=== PATIENT | male | born 1955 | race Caucasian/White ===

== ENCOUNTER → 2020-03-29 08:00 | Outpatient (CLI) | payer MEDICARE, OTHER, SELFPAY ==
--- NOTE | 2020-03-29 08:07 | DI.ECHO.S_ITS ---
Version: 1 Study ID: [id number] [place] [address] Name: KEVIN SEGOVIA Study Date: 03/29/2020, 8: 32 AM : 1955 BP: 133 / 82 mmHg Gender: Male Height: 70 in Age: 64 Years Weight: 190 lb BSA: 2.04 mA? Ordering: ELIOT SANTIZO Referring: ELIOT SANTIZO Clinician: Jennifer Anderson Reason For Study: EDEMA History: Summary Statements Normal sinus rhythm. Normal LV size, wall thickness, wall motion and LV systolic function. EF is 50-55%. Mild LA enlargement; borderline RV enlargement; otherwise normal chamber sizes. No significant valvular abnormalities. No prior study available for comparison Procedure: A two-dimensional transthoracic echocardiogram with color flow and Doppler was performed. The study quality was technically adequate. There is no prior echocardiogram noted for this patient. The patient was in sinus rhythm with heart rates between 55-66 bpm during the exam. Left Ventricle: Diastolic parameters suggest probable normal left ventricular diastolic function and normal filling pressures. The ejection fraction is estimated to be 50-55%. The left ventricle is normal in size and wall thickness. Right Ventricle: The right ventricular systolic function is normal. The right ventricle is borderline dilated. Atria: There is no Doppler evidence for an interatrial shunt. The left atrium is mildly dilated. Right atrial size is normal. Mitral Valve: There is trace mitral regurgitation. The mitral valve leaflets appear mildly thickened, but open well. Aortic Valve: No aortic regurgitation is present. There is no aortic valve stenosis. The aortic valve is trileaflet. The aortic valve opens well. Tricuspid Valve: There is mild tricuspid regurgitation. The right ventricular systolic pressure is estimated to be at least 27 mmHg based on an estimated right atrial pressure of 3 mm Hg. The tricuspid valve is normal in structure and function. Pulmonic Valve: There is no pulmonic valvular regurgitation. The pulmonic valve is not well visualized. Great Vessels: The dimensions of the ascending aorta are normal. The aortic root is normal size. The IVC is of normal diameter and collapses greater than 50% with a sniff. This suggests a low right atrial pressure of 3 mm Hg. Pericardium/ Pleura: There is no pericardial effusion. There is no pleural effusion. 2D and M-Mode Measurements and Calculations LVIDd: 5.1 cm AoV Openin.97 cm LVIDs: 3.7 cm LVOT diam: 2.19 cm IVSd: 1.02 cm Ao root diam: 3.5 cm LVPWd: 0.81 cm LV singleton. diameter/BSA (cm/m^2): 2.5 LV sys. diameter/BSA (cm/m^2): 1.79 EPSS: 0.42 cm RVD1 (basal): 4.3 cm IVC diam: 1.49 cm TAPSE: 2.7 cm LA A4 area: 20.0 ambulance paramedic? RA area: 20.4 ambulance paramedic? LA A2 area: 23.1 ambulance paramedic? RA long axis: 5.3 cm LA length (vol): 5.0 cm RA vol: 67.5 ml LA vol: 77.6 ml RA : 33.0 ml/mA? LA vol index: 38.0 ml/mA? Doppler Measurements and Calculations Ao V2 max: 121.3 cm/sec LVOT Max Mike: 102.8 cm/sec Ao V2 mean: 74.2 cm/sec LV V1 max P.2 mmHg Ao V2 VTI: 22.3 cm LV V1 VTI: 20.5 cm Ao max P.9 mmHg Ao mean P.6 mmHg LANDON(I,D): 3.5 ambulance paramedic? LANDON(V,D): 3.2 ambulance paramedic? LANDON indexed to BSA (cm^2/m^2): 1.69 sev ratio: 0.92 MV E max mike: 62.3 cm/sec MV dec time: 0.21 sec MV A max mike: 76.7 cm/sec MV E/A: 0.81 Med Peak E' Mike: 6.8 cm/sec Lat Peak E' Mike: 9.3 cm/sec E/e' average: 8.0 TR max mike: 246.2 cm/sec PA V2 max: 69.8 cm/sec TR max P.2 mmHg PA mean P.98 mmHg Cyndy Kenyon M.D. Electronically signed by: Cyndy Kenyon M.D. 03/29/2020, 11: 07 PM
== END ==
PROVIDERS: PCP Internal Medicine; Referring Provider Internal Medicine; Visit Provider Internal Medicine
DX: I07.1 Rheumatic tricuspid insufficiency (principal); R60.9 Edema, unspecified
CPT/HCPCS: 93306

== ENCOUNTER 2020-05-13 21:44 | Observation (INO) | payer MEDICARE, OTHER, SELFPAY ==
[2020-05-13 21:53] VITALS: BP 122/74; PULSE 65; RESP 22; TEMP 36.5; O2SAT 100
--- NOTE | 2020-05-13 21:59 | DI.RAD.S_ITS ---
PROCEDURE: XR ACUTE ABDOMEN SERIES INDICATIONS: Abdominal pain TECHNIQUE: One view chest and two views of the abdomen were acquired. COMPARISON: [facility], CT, CT ABDOMEN PELVIS W CON, 05/13/2020, 22:51. FINDINGS: Surgical changes and devices: None. Chest: Lungs are clear. Heart size is normal. No pleural effusions. No pneumoperitoneum. Abdomen: There is a paucity of intraluminal gas within the small bowel. Multiple scattered small bowel air-fluid levels are demonstrated. No suspicious calcifications. Bones: No suspicious bony lesions. IMPRESSION: 1. Nonspecific bowel gas pattern with multiple scattered air-fluid levels. Findings may represent a small bowel obstruction or ileus. Recommend correlation with subsequent CT. Dictated by: Jorden Lynch M.D. on 05/14/2020 at 8:29 Approved by: Jorden Lynch M.D. on 05/14/2020 at 8:30
--- NOTE | 2020-05-13 22:24 | DI.CT.S_ITS ---
PROCEDURE: CT ABDOMEN PELVIS W CON INDICATIONS: severe abdominal pain, nausea, and vomiting TECHNIQUE: After the administration of intravenous contrast, 5 mm thick sections acquired from the diaphragm to the symphysis. 5 mm coronal and sagittal reformats were acquired. For radiation dose reduction, the following was used: automated exposure control, adjustment of mA and/or kV according to patient size. COMPARISON: [facility], CR, XR ACUTE ABDOMEN SERIES, 05/13/2020, 21:59. FINDINGS: Image quality: Excellent. ABDOMEN: Lung bases: There is mild left basilar atelectasis. Heart size is normal. Solid organs: Evaluation of the liver demonstrates no focal hepatic lesions. The gallbladder appears within normal limits without calcified gallstones. Biliary system is non-dilated. Pancreas enhances normally. No peripancreatic fat stranding or fluid collections. No pancreatic duct dilatation. The spleen is normal in size. No adrenal nodules. Kidneys demonstrate no hydronephrosis. There is an exophytic oval hypodense lesion along the posterior left kidney measuring up to 1.8 x 1.2 cm with attenuation values higher than expected for a simple cyst. There are small foci of wall thickening. Peritoneum and bowel: There is segmental distention of multiple small bowel loops primarily involving the jejunum in the left lower quadrant. These measure up to 3.1 cm in diameter with scattered air-fluid levels. There is a relative transition point in the right paracentral region of the mid to lower abdomen. More distal loops of small bowel are normal in caliber. The colon also demonstrates normal caliber. The findings are compatible with a partial small bowel obstruction. There is colonic diverticulosis without acute diverticulitis. Mild segmental wall thickening is demonstrated in the sigmoid colon suggestive of a mild colitis. The appendix is normal in appearance. No free fluid or air. Nodes and vessels: No retroperitoneal or mesenteric adenopathy by size criteria. Aorta and inferior vena cava are normal in size. Miscellaneous: No ventral hernias. PELVIS: Genitourinary: Bladder wall thickness is normal. Miscellaneous: No inguinal hernias or adenopathy. Bones: No suspicious bony lesions. No vertebral body compression fractures. IMPRESSION: 1. Findings compatible with a partial small bowel obstruction with a relative transition point in the right mid to lower abdomen anteriorly. 2. Colonic diverticulosis without acute diverticulitis. Concordant with preliminary interpretation. Dictated by: Jorden Lynch M.D. on 05/14/2020 at 8:04 Approved by: Jorden Lynch M.D. on 05/14/2020 at 8:10
--- NOTE | 2020-05-13 22:24 | ED_ITS ---
HPI - Abdominal Pain General Chief Complaint: Abdominal Pain Stated Complaint: ABD pain Time Seen by Provider: 05/13/20 21:53 Source: patient and EMS Mode of arrival: EMS Limitations: no limitations History of Present Illness HPI narrative: 64-year-old male nonsmoker presents with a chief complaint of severe abdominal pain for the past few hours, he states it started suddenly, and is largely persistent but seems to have waves of intensity without provocation or palliation. He has had nausea and vomiting. Last bowel movement was 45 minutes ago. He has no trouble passing gas. He denies any abdominal surgeries before. He has had no fever chills and denies any new medications or dietary change. MD complaint: abdominal pain Onset (ago): hour(s) Pain Consistency: constant Location: diffuse Severity: severe Severity scale (1-10): 10 Quality: cramping and stabbing Radiation: none Relieving factors: nothing Exacerbating factors: nothing Associated symptoms: nausea and vomiting Related Data Home Medications Medication Instructions Recorded Confirmed aspirin PO DAILY 05/13/20 atorvastatin PO QPM 05/13/20 lisinopril PO DAILY 05/13/20 metformin mg PO DAILY 05/13/20 nifedipine PO DAILY 05/13/20 tamsulosin mg PO DAILY 05/13/20 Review of Systems Constitutional Constitutional: Denies chills, Denies fatigue, Denies fever(s), Denies frequent falls, Denies lethargy and Denies weakness Eyes Eyes: Denies change in vision, Denies eye discharge, Denies irritation and Denies loss of vision ENT Ears, Nose, Mouth, and Throat: Denies change in voice, Denies dizziness, Denies neck pain, Denies sore throat and Denies throat swelling Cardiovascular Cardiovascular: Denies chest pain, Denies irregular heart rhythm, Denies lightheadedness, Denies palpitations, Denies dyspnea, Denies dyspnea on exertion and Denies orthopnea Respiratory Respiratory: Denies cough, Denies dyspnea, Denies dyspnea on exertion and Denies wheezing Gastrointestinal Gastrointestinal: Reports abdominal pain, Denies change in bowel habits, Denies diarrhea, Reports nausea and Reports vomiting Musculoskeletal Musculoskeletal: Denies neck pain and Denies numbness Integumentary/Breasts Skin/Breast: Denies pruritus, Denies erythema, Denies rash and Denies wounds Neurologic Neurologic: Denies behavioral changes, Denies confusion, Denies dizziness, Denies frequent falls, Denies loss of vision, Denies numbness and Denies weakness Psychiatric Psychiatric: Denies anxiety, Denies behavioral changes, Denies confusion, Denies depression, Denies homicidal ideation and Denies suicidal ideation Endocrine Endocrine: Denies fatigue, Denies flushing and Denies palpitations Hematologic/Lymphatic Hematologic/Lymphatic: Denies easy bruising Allergic/Immunologic Allergic/Immunologic: Denies urticaria, Denies throat swelling and Denies wheezing Patient History alcohol intake frequency: 0-2 drinks per day Substance Use Type: does not use Exam Narrative Exam Narrative: GENERAL: [64] year old patient appears stated age. Well- nourished, well-developed patient, in obvious distress, rubbing his abdomen HEAD: Atraumatic. Normocephalic. EYES: Pupils equal round and reactive. Extraocular motions intact. No scleral icterus. No injection or drainage. ENT: Nose without bleeding, purulent drainage. Throat without erythema, tonsillar hypertrophy or exudate. Airway patent. NECK: Trachea midline. Non tender CARDIOVASCULAR: Regular rate and rhythm without murmurs, gallops, or rubs. RESPIRATORY: Clear to auscultation. Breath sounds equal bilaterally. No wheezes, rales, or rhonchi. GASTROINTESTINAL: Moderate distension though soft, decreased bowel sounds in all 4 quadrants, very tender to palpate in the mid to upper central abdomen EXTREMITIES: No edema or joint tenderness. BACK: Nontender without deformity or crepitance. No flank tenderness. NEURO: AOx3. SKIN: No rash or erythema of visible areas Initial Vital Signs Initial Vital Signs: Vital Signs Temperature 97.7 F 05/13/20 21:53 Pulse Rate 65 05/13/20 21:53 Respiratory Rate 22 05/13/20 21:53 Blood Pressure 122/74 05/13/20 21:53 Pulse Oximetry 100 05/13/20 21:53 Course Orders Ordered: ED Orders 05/13/20 21:59 XR acute abdomen series Stat 05/13/20 22:24 CT abdomen pelvis w con Stat 05/13/20 22:30 Complete Blood Count AUTO DIFF Stat Comprehensive Metabolic Panel Stat 05/13/20 23:50 COVID19 Stat Lactated Ringer's (Lactated Ringers) 1,000 mls @ 150 mls/hr IV CONT CASE Last Admin: 05/14/20 00:34 Dose: 150 mls/hr Documented by: KELY Discontinued Medications Lactated Ringer's (Lactated Ringers) 1,000 mls @ 1,000 mls/hr IV BOLUS ONE Stop: 05/13/20 22:57 Last Infusion: 05/14/20 00:34 Dose: 0 mls/hr Documented by: Admin: 05/13/20 22:35 Dose: 1,000 mls/hr Documented by: KELY Consultations Consultation #1: call to Dr. Andres (Gen Surgery), no surgical indications, requests admission to medicine Consultation #2: call to Hospitalist. Happy to accept Vital Signs Vital signs: Vital Signs - 8 hr 05/13/20 21:53 Temperature 97.7 F Pulse Rate 65 Respiratory Rate 22 Blood Pressure 122/74 Pulse Oximetry 100 MDM - Abdominal Pain Lab Data Result diagrams: 05/13/20 22:30 05/13/20 22:30 Labs: Lab Results 05/13/20 05/13/20 05/13/20 Range/Units 22:30 22:30 23:50 WBC 10.0 (4.5-11.0) X10^3/uL RBC 4.69 (4.5-5.9) X10^6/uL Hgb 13.8 (13.5-17.5) g/dL Hct 42.2 (41-53) % MCV 89.9 (80-100) fL MCH 29.4 (26-34) PG MCHC 32.7 (30-36) % RDW 14.0 (11.6-14.8) % Plt Count 237 (150-400) X10^3/uL Neut % (Auto) 77.1 H (50-75) % Lymph % (Auto) 14.9 L (25-40) % [place] % (Auto) 6.6 (3-14) % Eos % (Auto) 0.9 L (2-4) % Baso % (Auto) 0.5 (0-2) % Neut # (Auto) 7700 H (4095-3040) /uL Lymph # (Auto) 1500 (1755-4160) /uL [place] # (Auto) 700 (0-900) /uL Eos # (Auto) 100 (0-450) /uL Baso # (Auto) 0 (0-100) /uL Sodium 137 (137-145) mmol/L Potassium 4.4 (3.4-5.1) mmol/L Chloride 102 (98-107) mmol/L Carbon Dioxide 32 (22-32) mmol/L BUN 27 H (9-20) mg/dL Creatinine 1.35 H (0.66-1.25) mg/dL Estimated GFR 52.9 L (>60) mL/min BUN/Creatinine Ratio 20.0 (6-22) Glucose 178 H (80-110) mg/dL Calcium 9.2 (8.4-10.2) mg/dL Total Bilirubin 0.4 (0.2-1.3) mg/dL AST 22 (17-59) IU/L ALT 16 (<50) IU/L Alkaline Phosphatase 105 (38-126) U/L Total Protein 7.7 (6.3-8.2) g/dL Albumin 4.6 (3.5-5.0) g/dL Globulin 3.1 (1.7-4.1) g/dL Albumin/Globulin Ratio 1.5 (1.0-2.8) SARS-CoV-2 (PCR) Negative (Negative) Imaging Data Abdominal x-ray: Radiologist's Impression: B/L consolidation consistent with pneumonia CT scan - abdomen/pelvis: Radiologist's Impression: moderate partial bowel obstruction involving the proximal to mid jejunum MDM Narrative Medical decision making narrative: patient with sudden severe colicky abdominal pain, N/V very concerning for SBO. AAS shows no obstruction but suggests B/L PNA. Patient has no SOB, cough, fever, or abnormal lung exam. At admission patient not actively vomiting, pain tolerable, and no elevated WBCs, also he has had multiple sinus surgeries and very much does not want an NG at this time Discharge Plan Departure Patient Disposition: Admitted As Inpatient Clinical Impression: Small bowel obstruction
[2020-05-13] MEDS: LACTATED RINGERS 1,000 ML 1000 ML IV (22:35)
[2020-05-13 22:40] LABS: Add Manual Diff / Slide Review NO; Basophils Absolute Auto 0 /uL (0-100); Basophils Percent Auto 0.5 % (0-2); Eosinophils Absolute Auto 100 /uL (0-450); Eosinophils Percent Auto 0.9 % (2-4); Hematocrit 42.2 % (41-53); Hemoglobin 13.8 g/dL (13.5-17.5); Lymphocytes Absolute Auto 1500 /uL (1100-4500); Lymphocytes Percent Auto 14.9 % (25-40); Mean Corpuscular HGB Conc 32.7 % (30-36); Mean Corpuscular Hemoglobin 29.4 PG (26-34); Mean Corpuscular Volume 89.9 fL (80-100); Monocytes Absolute Auto 700 /uL (0-900); Monocytes Percent Auto 6.6 % (3-14); Neutrophils Absolute Auto 7700 /uL (1500-7000); Neutrophils Percent Auto 77.1 % (50-75); Platelet Count 237 X10^3/uL (150-400); Red Blood Cell Count 4.69 X10^6/uL (4.5-5.9)
[2020-05-13 22:50] LABS: Alanine Aminotransferase 16 IU/L (<50); Albumin 4.6 g/dL (3.5-5.0); Albumin Globulin Ratio 1.5 (1.0-2.8); Alkaline Phosphatase 105 U/L (38-126); Aspartate Aminotransferase 22 IU/L (17-59); Bilirubin Total 0.4 mg/dL (0.2-1.3); Blood Urea Nitrogen 27 mg/dL (9-20); Calcium 9.2 mg/dL (8.4-10.2); Carbon Dioxide 32 mmol/L (22-32); Chloride 102 mmol/L (98-107); Estimated Glomerular Filt Rate 52.9 mL/min (>60); Globulin 3.1 g/dL (1.7-4.1); Glucose 178 mg/dL (80-110); HEMOLYSIS 47 (0-50); Potassium 4.4 mmol/L (3.4-5.1); Sodium 137 mmol/L (137-145); Total Protein 7.7 g/dL (6.3-8.2)
[2020-05-14 00:10] LABS: COVID19 -Nasal RAPID Negative (Negative)
[2020-05-14] MEDS: LACTATED RINGERS 1,000 ML 150 ML IV (00:34)
[2020-05-14 01:51] VITALS: BP 138/80; PULSE 62; RESP 15; TEMP 36.4; O2SAT 98
--- NOTE | 2020-05-14 01:51 | PM.HP.1 ---
History of Present Illness History of Present Illness Date Patient Seen: 05/14/20 Time Patient Seen: 01:15 Chief complaint: ABD pain Narrative: Tho Virgen is a 64 y.o. male with diabetes type 2, hypertension and hyperlipidemia was in his usual state of health when he developed abdominal pain and bloating after eating dinner. He had a bowel movement and thought that would relieve his pain. His pain persisted, became nauseous, threw up at home, then in the ambulance. After he throw up the first time, his called EMS. States the vomit was a joseph brown color and stated looked like what he had eaten for dinner. He denies headache or difficulty swallowing, has had left sinus surgery X 2, denies shortness of breath, chest pain, gas, dysurea, diarrhea or constipation. He requests NO narcotic medications as he does not want to mask his pain, unless it is given to him on the way to the OR. He also declines a nasogastric tube due to the issues of drainage from his left sinues. He states his last A1c was in the low 7s and has not heard about a result from 2 months ago. Abdominal and pelvis CT indicate a moderate partial small-bowel obstruction involving the proximal and to mid jejunum. Patient was initiated on and LR bolus and arrived to the floor with LR running at 150 mL. Patient is afebrile, blood pressure 117/61, heart rate 66, respiratory rate 20, oxygen saturation of 98% on room air, he weighs 95 kg with a BMI of 30.1. His CBC is largely within normal limits, he does have a creatinine elevation of 1.35 and this is unknown whether this is his baseline, BUN is 27, GFR is 52.9, glucose 178, liver enzymes within normal limits and COVID-19 PCR is negative. Patient History Medical History (Updated 05/14/20 @ 02:12 by ANTHONY Duval) Diabetes type 2, controlled Essential hypertension Hyperlipidemia Surgical History (Updated 05/14/20 @ 02:12 by ANTHONY Duval) History of fusion of cervical spine History of sinus surgery Family & Social History Family History (Updated 05/14/20 @ 02:16 by ANTHONY Duval) Father Sepsis Myocardial infarction Mother of unknown cause Safety & Behavioral: Feels Safe in Current Yes Environment Been Physically Hurt or No Threatened By a Person Tobacco & Substance use: alcohol intake frequency 0-2 drinks per day Substance Use Type does not use Meds Home Medications and Allergies Home Medications Medication Instructions Recorded Confirmed Type aspirin PO DAILY 05/13/20 History atorvastatin PO QPM 05/13/20 History lisinopril PO DAILY 05/13/20 History metformin mg PO DAILY 05/13/20 History nifedipine PO DAILY 05/13/20 History tamsulosin mg PO DAILY 05/13/20 History Allergies Allergy/AdvReac Type Severity Reaction Status Date / Time No Known Drug Allergies Allergy Verified 05/14/20 01:59 Review of Systems Review of Systems ROS: Yes All systems reviewed with the patient and are negative except as otherwise documented Exam Vital Signs (past 8 hours): - 05/13/20 21:53 Temperature 97.7 F Pulse Rate 65 Respiratory Rate 22 Blood Pressure 122/74 Pulse Oximetry 100 Oxygen Delivery Method Room Air Narrative Exam Narrative: Gen: Alert, oriented, well-developed 64 y.o. male, very pleasant HEENT: normocephalic, atraumatic, conjunctiva clear, sclera non-icteric, oral mucosa pink and moist Neck: supple, full ROM, no JVD, trachea is midline Resp: Lungs sounds course, non-labored breathing CV: RRR, no murmur or rubs Abd: soft, mildly distended, hyperactive BTs, no fluid wave Skin: no lesions or rashes, dry and intact Neuro: Alert and oriented X 4 w/no focal deficits. Speech clear and coherent. Extremities: moves all 4 extremities, is ambulatory, negative James?s sign Psyche: normal mood and affect. Objective Labs Result Diagrams: 05/13/20 22:30 05/13/20 22:30 Labs: Laboratory Results - last 24 hr 05/13/20 05/13/20 05/13/20 22:30 22:30 23:50 WBC 10.0 RBC 4.69 Hgb 13.8 Hct 42.2 MCV 89.9 MCH 29.4 MCHC 32.7 RDW 14.0 Plt Count 237 Neut % (Auto) 77.1 H Lymph % (Auto) 14.9 L [place] % (Auto) 6.6 Eos % (Auto) 0.9 L Baso % (Auto) 0.5 Neut # (Auto) 7700 H Lymph # (Auto) 1500 [place] # (Auto) 700 Eos # (Auto) 100 Baso # (Auto) 0 Sodium 137 Potassium 4.4 Chloride 102 Carbon Dioxide 32 BUN 27 H Creatinine 1.35 H Estimated GFR 52.9 L BUN/Creatinine Ratio 20.0 Glucose 178 H Calcium 9.2 Total Bilirubin 0.4 AST 22 ALT 16 Alkaline Phosphatase 105 Total Protein 7.7 Albumin 4.6 Globulin 3.1 Albumin/Globulin Ratio 1.5 SARS-CoV-2 (PCR) Negative Assessment & Plan Assessment & Plan narrative: Tho Virgen is a 64 y.o. male with a partial small bowel obstruction who will be admitted initially for medical management. Partial small bowel obstruction, acute, present on admission -NPO except meds -Encourage ambulation -PO tylenol for mild pain, patient declines anything stronger -Dr. Andres is aware and will see the patient if requested Diabetes type 2, likely well controlled -Holding oral antidiabetics -Blood glucose and low dose correctional insulin q 6 hours Essential hypertension, well controlled -continue home dose of nifedipine, holding lisinopril due to current renal function -Patient is normotensive at this time, so will hold meds until the am Hyperlipidemia, chronic and stable -Continue home dose of atorvastatin 40 mg po at bed time BPH, chronic -Continue home dose of 0.4 mg at 0600 VTE prophylaxis: Wells risk score: 0 Bilateral SCDs Consults: Dr. Andres, General Surgery consult and involvement is appreciated. Patient is admitted under inpatient status with expected length of stay greater than 2 midnights due to severity of presenting symptoms, risk of adverse event, and complexity of treatment plan. FEN: IV NS at 100 ml/hour, NPO, BMP and magnesium in the am. Dispo: probable d/c to home if he has another BM Code Status: Full code as discussed with patient COVID-19 COVID-19 status: Negative Result date/Date tested (Pos, Neg/Pending): 05/14/20 Scores Wells' Criteria for PE Clinical signs and symptoms of DVT: No PE is #1 Dx or equally likely: No Heart rate > 100: No Immobilization at least 3 days or surg in previous 4 weeks: No History of PE or DVT: No Hemoptysis: No Malignancy w/Treatment within 6 months or palliative: No Wells' PE Score total: 0
[2020-05-14] MEDS: SODIUM CHLORIDE 0.9% 1,000 ML 100 ML IV (02:00)
[2020-05-14 02:02] VITALS: BP 117/61; PULSE 66; RESP 20; O2SAT 98
[2020-05-14] MEDS: INSULIN ASPART 100 UNIT/ML INSULN PEN SUBCUT (02:37)
--- NOTE | 2020-05-14 03:21 | PC.NURSE ---
0151 Admitted from ER for SBO, abdominal pain. Denies any pain & nausea upon admission. NPO for now CBG 196 1 unitt of Insulin sliding scale admin. NS started @ 100 cc/hr, oriented to his room. Denies any recent fall for the past 3 months, fall precaution not implemented. Call light within reach, will cont. POC & monitor.
[2020-05-14 06:02] LABS: Add Manual Diff / Slide Review NO; Basophils Absolute Auto 0 /uL (0-100); Basophils Percent Auto 0.5 % (0-2); Eosinophils Absolute Auto 0 /uL (0-450); Eosinophils Percent Auto 0.4 % (2-4); Hematocrit 36.6 % (41-53); Hemoglobin 11.9 g/dL (13.5-17.5); Lymphocytes Absolute Auto 1500 /uL (1100-4500); Lymphocytes Percent Auto 19.1 % (25-40); Mean Corpuscular HGB Conc 32.6 % (30-36); Mean Corpuscular Hemoglobin 29.3 PG (26-34); Mean Corpuscular Volume 89.8 fL (80-100); Monocytes Absolute Auto 800 /uL (0-900); Neutrophils Absolute Auto 5700 /uL (1500-7000); Platelet Count 220 X10^3/uL (150-400); Red Blood Cell Count 4.08 X10^6/uL (4.5-5.9); Red Cell Distribution Width 13.8 % (11.6-14.8); White Blood Cell Count 8.1 X10^3/uL (4.5-11.0)
[2020-05-14 06:33] LABS: Magnesium 2.3 mg/dL (1.6-2.3)
[2020-05-14 06:34] LABS: BUN Creatinine Ratio 19.7 (6-22); Blood Urea Nitrogen 23 mg/dL (9-20); Calcium 8.4 mg/dL (8.4-10.2); Carbon Dioxide 29 mmol/L (22-32); Chloride 107 mmol/L (98-107); Estimated Glomerular Filt Rate > 60.0 mL/min (>60); Glucose 162 mg/dL (80-110); HEMOLYSIS 21 (0-50); Sodium 138 mmol/L (137-145)
[2020-05-14 06:43] LABS: Hemoglobin A1C% w Est Avg Glu 7.9 % (4.0-6.0)
[2020-05-14 07:00] VITALS: O2SAT 98
--- NOTE | 2020-05-14 07:01 | DI.RAD.S_ITS ---
PROCEDURE: FL SMALL BOWEL FOLLOW THROUGH INDICATIONS: small bowel obstruction. Perform with gastrografin COMPARISON: None. FINDINGS: KUB: Preprocedural reserves clerk film demonstrates a normal bowel gas pattern. No suspicious abdominal calcifications. Visualized solid organ contours appear normal. No suspicious bony abnormalities. Small bowel: There is normal transit time of barium through the small bowel. Small bowel loops are of normal caliber throughout. Mucosal folds are smooth and of normal thickness. No strictures, intraluminal masses, or extrinsic mass effects are noted. The terminal ileum is identified, and is normal in morphology. IMPRESSION: Normal small bowel follow-through, no delay in transit of oral contrast through the small-bowel and into the colon. Dictated by: Wilfredo Cunningham M.D. on 05/14/2020 at 10:52 Approved by: Wilfredo Cunningham M.D. on 05/14/2020 at 10:52
--- NOTE | 2020-05-14 08:31 | PC.NURSE ---
Addendum entered by Alison Kennedy R.N. 05/14/20 10:49: patient has had total of 7 explosive diarrhea episodes. Original Note: PATIENT HAS HAD [address] SANTILLAN NOTIFIED. HOLD SUPPOSITORY AND FLEETS, CONTINUE WITH SM BOWEL FOLLOW THRU.
--- NOTE | 2020-05-14 11:59 | P.CONS_ITS ---
History of Present Illness Consult details Date Patient Seen: 05/14/20 Time Patient Seen: 11:59 Chief complaint: ABD pain Narrative: 64-year-old man seen in consultation for a small-bowel obstruction. Several days of abdominal bloating nausea vomiting and then presents to the emergency room last night. On admission he underwent a CT scan which demonstrates a partial small bowel obstruction with some dilated loops of small bowel and a possible transition point in the mid jejunum. No history of prior abdominal surgery or diverticular disease. Admission white blood cell count 8 reamers his labs were unremarkable he was afebrile vital signs within normal [place] its. Meds Home Medications and Allergies Home Medications Medication Instructions Recorded Confirmed Type aspirin [Adult Low Dose Aspirin] 81 mg PO DAILY 05/13/20 05/14/20 History atorvastatin [Lipitor] 40 mg PO QPM 05/13/20 05/14/20 History lisinopril 20 mg PO DAILY 05/13/20 05/14/20 History metformin mg PO DAILY 05/13/20 History nifedipine PO DAILY 05/13/20 History tamsulosin [Flomax] 0.4 mg PO DAILY 05/13/20 05/14/20 History Allergies Allergy/AdvReac Type Severity Reaction Status Date / Time No Known Drug Allergies Allergy Verified 05/14/20 01:59 Review of Systems Review of Systems Narrative: A 10 point review of systems is negative except as noted in the HPI Exam Vital Signs (past 8 hours): - 05/14/20 07:00 Pulse Oximetry 98 Oxygen Delivery Method Room Air Oxygen Flow Rate 0 Narrative Exam Narrative: General-no acute distress, well nourished adult male HEENT-moist mucous membranes, no scleral icterus Neck-supple, no lymphadenopathy Chest- non labored respirations, clear to auscultation bilaterally Cardiac-regular rate no peripheral edema Abdomen-mildly distended no peritonitis Extremities-warm, well perfused Neurological-alert and oriented, no focal deficits Objective Labs Result Diagrams: 05/14/20 05:41 05/14/20 05:41 Labs: Laboratory Results - last 24 hr 05/13/20 05/13/20 05/13/20 22:30 22:30 23:50 WBC 10.0 RBC 4.69 Hgb 13.8 Hct 42.2 MCV 89.9 MCH 29.4 MCHC 32.7 RDW 14.0 Plt Count 237 Neut % (Auto) 77.1 H Lymph % (Auto) 14.9 L [place] % (Auto) 6.6 Eos % (Auto) 0.9 L Baso % (Auto) 0.5 Neut # (Auto) 7700 H Lymph # (Auto) 1500 [place] # (Auto) 700 Eos # (Auto) 100 Baso # (Auto) 0 Sodium 137 Potassium 4.4 Chloride 102 Carbon Dioxide 32 BUN 27 H Creatinine 1.35 H Estimated GFR 52.9 L BUN/Creatinine Ratio 20.0 Glucose 178 H Hemoglobin A1c Calcium 9.2 Magnesium Total Bilirubin 0.4 AST 22 ALT 16 Alkaline Phosphatase 105 Total Protein 7.7 Albumin 4.6 Globulin 3.1 Albumin/Globulin Ratio 1.5 SARS-CoV-2 (PCR) Negative 05/14/20 05/14/20 05/14/20 05:41 05:41 05:41 WBC 8.1 RBC 4.08 L Hgb 11.9 L Hct 36.6 L MCV 89.8 MCH 29.3 MCHC 32.6 RDW 13.8 Plt Count 220 Neut % (Auto) 70.0 Lymph % (Auto) 19.1 L [place] % (Auto) 10.0 Eos % (Auto) 0.4 L Baso % (Auto) 0.5 Neut # (Auto) 5700 Lymph # (Auto) 1500 [place] # (Auto) 800 Eos # (Auto) 0 Baso # (Auto) 0 Sodium 138 Potassium 4.0 Chloride 107 Carbon Dioxide 29 BUN 23 H Creatinine 1.17 Estimated GFR > 60.0 BUN/Creatinine Ratio 19.7 Glucose 162 H Hemoglobin A1c Calcium 8.4 Magnesium 2.3 Total Bilirubin AST ALT Alkaline Phosphatase Total Protein Albumin Globulin Albumin/Globulin Ratio SARS-CoV-2 (PCR) 05/14/20 05:41 WBC RBC Hgb Hct MCV MCH MCHC RDW Plt Count Neut % (Auto) Lymph % (Auto) [place] % (Auto) Eos % (Auto) Baso % (Auto) Neut # (Auto) Lymph # (Auto) [place] # (Auto) Eos # (Auto) Baso # (Auto) Sodium Potassium Chloride Carbon Dioxide BUN Creatinine Estimated GFR BUN/Creatinine Ratio Glucose Hemoglobin A1c 7.9 H Calcium Magnesium Total Bilirubin AST ALT Alkaline Phosphatase Total Protein Albumin Globulin Albumin/Globulin Ratio SARS-CoV-2 (PCR) Assessment & Plan Assessment and plan (1) Small bowel obstruction: Status: Acute Assessment & Plan narrative: 64-year-old man no history of prior abdominal surgery presents with a partial small-bowel obstruction. CT abdomen pelvis reviewed demonstrates possible transition point in the mid small bowel no free air or free fluid. A small-bowel follow-through several hours later demonstrates normal transit of contrast into the colon within 2 hours. May start clear liquid diet and advanced as tolerated. No surgical intervention. May discharge when medically stable.
[2020-05-14 13:30] VITALS: BP 113/71; PULSE 80; RESP 20; TEMP 36.7; O2SAT 98
[2020-05-14 15:44] VITALS: BP 113/74; PULSE 60; RESP 19; TEMP 36.4; O2SAT 97
--- NOTE | 2020-05-14 15:56 | CM.DANOTE ---
Discharge Planning/Care Management DCP: assessment: Case received, EMR reviewed. DC to home noted. Pt admitted with pain and dx of partial small bowel obstruction. Hospitalist team. [facility]/consulting. Pt is now stooling and stable for home setting. Admitted just after midnight 05/14. Went to room to check in with pt. He and his are going over final d/c paperwork with perico ANTONIO. Home today. No d/c concerns voiced. < 24 hr LOS Payer: Medicare and [employer]. CM Discharge Assessment Start: 05/14/20 15:51 Freq: Status: Active Protocol: Document 05/14/20 15:51 ITV (Rec: 05/14/20 15:51 ITV [id number]) Discharge Planning Assessment Advance Directives? No Advance Directives on File No History Provided By Medical Record Prior Living Arrangements House Household Members spouse,children Willing to Return to Facility? No Document 05/14/20 15:56 ITV (Rec: 05/14/20 15:56 ITV [id number]) Discharge Planning Assessment Advance Directives? No Advance Directives on File No History Provided By Patient,Medical Record Prior Living Arrangements House Household Members spouse,children Willing to Return to Facility? No Independent with ADL's Yes Is patient alert and oriented? Yes Discharge Plan Home
[2020-05-14 16:00] VITALS: O2SAT 97
--- NOTE | 2020-05-14 16:12 | PC.NURSE ---
Discharge education provided to pt and , verbalized all d/c instructions. Stated he will call PCP on Sunday to get follow-up appt. Pt left in stable condition with all personal belongings via w/c to private vehicle.
== END 2020-05-14 16:10 | disposition home or self-care (01) ==
LOC: ED 05-14 00:47 → AC 05-14 08:30
PROVIDERS: Admitting Provider Nurse Practitioner Family; Emergency Provider Emergency Medicine; PCP Internal Medicine; Referring Provider Emergency Medicine; Visit Provider Nurse Practitioner Family
DX: K56.600 Partial intestinal obstruction, unspecified as to cause (principal); E11.9 Type 2 diabetes mellitus without complications; I10 Essential (primary) hypertension; E78.5 Hyperlipidemia, unspecified; N40.0 Benign prostatic hyperplasia without lower urinary tract symptoms; Z79.84 Long term (current) use of oral hypoglycemic drugs; Z20.822 Contact with and (suspected) exposure to COVID-19
CPT/HCPCS: 36415; 74022; 74177; 74250; 80048; 80053; 82962; 83036; 83735; 85025; 87635; 96360; 96361; 99218; 99284; C9803; G0378; Q9967

== ENCOUNTER → 2020-10-20 09:03 | Outpatient (CLI) | payer MEDICARE, OTHER, SELFPAY ==
[2020-10-20 10:11] LABS: COVID19 -Nasal RAPID Negative (Negative)
== END ==
PROVIDERS: PCP Internal Medicine; Referring Provider Internal Medicine; Visit Provider Internal Medicine
DX: Z20.822 Contact with and (suspected) exposure to COVID-19 (principal)
CPT/HCPCS: 87635; C9803

== ENCOUNTER → 2020-10-20 09:05 | Outpatient (CLI) | payer MEDICARE, OTHER, SELFPAY ==
--- NOTE | 2020-10-22 16:13 | PM.PFT.1 ---
Pulmonary Function Test Referral & Results Date Patient Seen: 10/20/20 Requesting provider: Selena Lal Results: The spirometry demonstrates an FVC of 3.73 L which is 82% of predicted. The FEV1 was measured at 2.75 L which is 81% of predicted. The FEV1/FVC ratio was 74 which is 99% of predicted. Following the administration of bronchodilator there was no appreciable change. Lung volumes show an SVC of 3.96 L which is 85% of predicted. The diffusing capacity was measured at 24.10 which is 74% of predicted. No hemoglobin value was provided, so no correction for potential anemia could be made, if appropriate. The maximum voluntary ventilation was Reduced slightly Interpretation: this study demonstrates perhaps very mild obstructive lung disease based on minimal reduction FEV1 and shape a flow volume loop. There is no evidence of benefit following bronchodilator There is also mild reduction diffusing capacity suggesting element of disease at the capillary alveolar level
== END ==
PROVIDERS: PCP Internal Medicine; Referring Provider Internal Medicine; Visit Provider Internal Medicine
DX: R06.09 Other forms of dyspnea (principal); Z20.822 Contact with and (suspected) exposure to COVID-19; Z87.891 Personal history of nicotine dependence; J98.8 Other specified respiratory disorders
CPT/HCPCS: 87635; 94060; 94726; 94729; C9803

== ENCOUNTER 2020-12-27 00:55 | Inpatient (IN) | payer MEDICARE, OTHER, SELFPAY ==
[2020-12-27] VITALS (13 sets, daily range): BP systolic 112–147; BP diastolic 60–82; PULSE 60–83; RESP 13–18; TEMP 36.1–36.7; O2SAT 93–98; BMI 29.4
--- NOTE | 2020-12-27 01:03 | DI.RAD.S_ITS ---
PROCEDURE: XR ABDOMEN MIN 2V INDICATIONS: severe abdominal pain TECHNIQUE: 2 views of the abdomen were acquired. COMPARISON: [facility], CT, CT ABDOMEN PELVIS W CON, 12/27/2020, 1:28. FINDINGS: Surgical changes and devices: None. Bowel: No pneumoperitoneum. The bowel gas pattern is demonstrates small bowel fluid levels. Soft tissues: Liver shadow appears enlarged. No suspicious abdominal calcifications. Bones: No suspicious bony abnormalities. IMPRESSION: Small bowel fluid levels most consistent with partial small bowel obstruction. Dictated by: Merlene Owens M.D. on 12/27/2020 at 1:57 Approved by: Merlene Owens M.D. on 12/27/2020 at 1:58
--- NOTE | 2020-12-27 01:08 | ED_ITS ---
HPI - Abdominal Pain General Chief Complaint: Abdominal Pain Stated Complaint: ABD Pain Time Seen by Provider: 12/27/20 00:59 Source: patient and EMS Mode of arrival: EMS History of Present Illness HPI narrative: 65-year-old male former smoker with history of hyperlipidemia, hypertension and diabetes presents with a chief complaint of severe left lower quadrant pain for much of the day. He states that it seems to come and go with a mind of its own and at times is quite intense, nearly a 10. Other times it seems to calm a bit but never goes away. He has had nausea and vomiting and last bowel movement was earlier today. He states the pain is worsening and he is no longer passing gas. He denies any fever chills. He has had a history of bowel obstruction and this feels similar. He did not require surgery previously Related Data Home Medications Medication Instructions Recorded Confirmed aspirin 81 mg tablet,delayed 81 mg PO DAILY 05/13/20 12/27/20 release (Adult Low Dose Aspirin) atorvastatin 40 mg tablet (Lipitor) 40 mg PO QPM 05/13/20 12/27/20 lisinopril 20 mg tablet 20 mg PO DAILY 05/13/20 12/27/20 nifedipine 30 mg tablet,extended 30 mg PO DAILY 05/13/20 12/27/20 release 24 hr tamsulosin 0.4 mg capsule (Flomax) 0.4 mg PO DAILY 05/13/20 05/14/20 metformin 1,000 mg tablet,extended 1,000 mg PO BID 12/27/20 12/27/20 release 24hr Allergies Allergy/AdvReac Type Severity Reaction Status Date / Time No Known Drug Allergies Allergy Verified 05/14/20 01:59 Review of Systems Review of Systems Narrative: GENERAL: Denies chills, fatigue, malaise, fever, sweats. HEENT: Denies sinus pain, ear pain, sore throat, difficulty swallowing, dizziness. RESPIRATORY: Denies dyspnea, cough, wheezing, hemoptysis, sputum. CARDIOVASCULAR: Denies chest pain, palpitations, orthopnea, edema, GASTROINTESTINAL: See HPI : Denies dysuria, frequency, incontinence, hematuria, urinary retention. MUSCULOSKELETAL: denies weakness, joint pain, or bony pain SKIN: Denies rash, skin lesions, or other NEUROLOGIC: Denies weakness, headache, numbness, change in speech, confusion, seizures, incoordination. PSYCHIATRIC: No concerning psychosocial issues. 12 point review of systems is negative except for those stated above Patient History Medical History Diabetes type 2, controlled Essential hypertension Hyperlipidemia Surgical History History of fusion of cervical spine History of sinus surgery Family History Father Sepsis Myocardial infarction Mother of unknown cause Social History household members: spouse and children Smoking Status: Former smoker alcohol intake: current Smoking Status: Former smoker alcohol intake frequency: a few times a month Substance Use Type: does not use Exam Narrative Exam Narrative: GENERAL: [65] year old patient appears stated age. Well- developed patient, in obvious significant pain, holding a filled emesis bag and bent over a painful abdomen HEAD: Atraumatic. Normocephalic. EYES: Pupils equal round and reactive. Extraocular motions intact. No scleral icterus. No injection or drainage. ENT: Nose without bleeding, purulent drainage. Throat without erythema, tonsillar hypertrophy or exudate. Airway patent. NECK: Trachea midline. Non tender CARDIOVASCULAR: Regular rate and rhythm without murmurs, gallops, or rubs. RESPIRATORY: Clear to auscultation. Breath sounds equal bilaterally. No wheezes, rales, or rhonchi. GASTROINTESTINAL: Abdomen slightly distended, tender in the left lower quadrant with high-pitched bowel sounds EXTREMITIES: No edema or joint tenderness. BACK: Nontender without deformity or crepitance. No flank tenderness. NEURO: AOx3. SKIN: No rash or erythema of visible areas Initial Vital Signs Initial Vital Signs: Vital Signs Temperature 97.3 F L 12/27/20 00:59 Pulse Rate 70 12/27/20 00:59 Respiratory Rate 18 12/27/20 00:59 Blood Pressure 147/76 H 12/27/20 00:59 Pulse Oximetry 96 12/27/20 00:59 Course Orders Ordered: ED Orders 12/27/20 01:02 Complete Blood Count AUTO DIFF Stat Comprehensive Metabolic Panel Stat Lipase Stat 12/27/20 01:03 XR abdomen min 2V Stat 12/27/20 01:10 COVID19 - ADMIT ([facility] swab/PCR) Stat 12/27/20 01:23 CT abdomen pelvis w con Stat Acetaminophen (Acetaminophen 325 Mg Tablet) 650 mg PO Q6HR PRN PRN Reason: Fever/Mild Pain (1-3) Hydrocodone Bitart/Acetaminophen (Hydrocodone/Acet 5/325 Tablet) 2 tab PO Q4HR PRN PRN Reason: Pain, Severe (7-10) Atorvastatin Calcium (Atorvastatin 20 Mg Tablet) 40 mg PO QPM [facility] Enoxaparin Sodium (Enoxaparin 30 Mg/0.3 Ml Syringe) 30 mg SUBCUT DAILY [facility] Hydromorphone HCl (Hydromorphone 1 Mg Inj) 1 mg IV Q3H PRN PRN Reason: Pain, Severe (7-10) Lactated Ringer's (Lactated Ringers) 1,000 mls @ 100 mls/hr IV CONT [facility] Last Admin: 12/27/20 03:15 Dose: 100 mls/hr Documented by: KEVIN Magnesium Sulfate 2 gm/ Folic Acid 1 mg/ Thiamine HCl 100 mg / Multivitamins 10 ml/ Sodium Chloride 1,015.2 mls @ 125 mls/hr IV NOW ONE Stop: 12/27/20 10:30 Insulin Human Lispro (Insulin Lispro 100 Unit/Ml 3ml Vial) 0 unit SUBCUT ACHS CASE; Protocol Lisinopril (Lisinopril 20 Mg Tablet) 20 mg PO DAILY [facility] Naloxone HCl (Naloxone 0.4 Mg/Ml Vial) 0.2 mg IV Q2MIN PRN PRN Reason: Opiate Reversal Nifedipine (Nifedipine 30 Mg Tab Er) 30 mg PO DAILY [facility] Ondansetron HCl (Ondansetron 4 Mg/2 Ml Inj) 4 mg IV Q6HR [facility] Last Admin: 12/27/20 05:40 Dose: 4 mg Documented by: KEVIN Pantoprazole Sodium (Pantoprazole Dr 20 Mg Tablet) 20 mg PO 0600 [facility] Last Admin: 12/27/20 05:40 Dose: Not Given Documented by: KEVIN Tamsulosin HCl (Tamsulosin 0.4 Mg Capsule) 0.4 mg PO DAILY [facility] Discontinued Medications Hydromorphone HCl (Hydromorphone 0.5 Mg Inj) 0.5 mg IV NOW ONE Stop: 12/27/20 01:00 Last Admin: 12/27/20 01:12 Dose: 0.5 mg Documented by: CHRYSTAL Hydromorphone HCl (Hydromorphone 0.5 Mg Inj) 0.5 mg IV NOW ONE Stop: 12/27/20 03:01 Last Admin: 12/27/20 03:04 Dose: 0.5 mg Documented by: CHRYSTAL Sodium Chloride (Normal Saline 0.9%) 1,000 mls @ 1,000 mls/hr IV BOLUS ONE Stop: 12/27/20 01:58 Last Infusion: 12/27/20 02:45 Dose: 0 mls/hr Documented by: Admin: 12/27/20 01:11 Dose: 1,000 mls/hr Documented by: CHRYSTAL Lidocaine HCl (Lidocaine 2% (Glydo) 6 Ml Gel) 6 ml TOP NOW ONE Stop: 12/27/20 02:22 Last Admin: 12/27/20 02:25 Dose: 6 ml Documented by: CHRYSTAL Midazolam HCl (Midazolam 2 Mg/2 Ml Vial) 2 mg IV NOW ONE Stop: 12/27/20 02:18 Last Admin: 12/27/20 02:25 Dose: 1 mg Documented by: CHRYSTAL Ondansetron HCl (Ondansetron 4 Mg/2 Ml Inj) 4 mg IV NOW ONE Stop: 12/27/20 01:00 Last Admin: 12/27/20 01:12 Dose: 4 mg Documented by: CHRYSTAL Consultations Consultation #1: Discussed with on-call general surgery (Dr. Funez) who will admit patient to her service. Vital Signs Vital signs: Vital Signs - 8 hr 12/27/20 00:59 12/27/20 01:11 12/27/20 01:32 Temperature 97.3 F L Pulse Rate 70 83 68 Respiratory Rate 18 Blood Pressure 147/76 H Pulse Oximetry 96 97 12/27/20 01:36 12/27/20 02:00 Temperature Pulse Rate 70 65 Respiratory Rate Blood Pressure 138/73 Pulse Oximetry 97 93 MDM - Abdominal Pain Lab Data Result diagrams: 12/27/20 01:02 12/27/20 01:02 Labs: Lab Results 12/27/20 12/27/20 12/27/20 Range/Units 01:02 01:02 01:10 WBC 13.3 H (4.5-11.0) X10^3/uL RBC 4.53 (4.5-5.9) X10^6/uL Hgb 13.1 L (13.5-17.5) g/dL Hct 39.9 L (41-53) % MCV 88.0 (80-100) fL MCH 28.8 (26-34) PG MCHC 32.7 (30-36) % RDW 14.2 (11.6-14.8) % Plt Count 190 (150-400) X10^3/uL Neut % (Auto) 87.9 H (50-75) % Lymph % (Auto) 7.0 L (25-40) % [place] % (Auto) 4.8 (3-14) % Eos % (Auto) 0.2 L (2-4) % Baso % (Auto) 0.1 (0-2) % Neut # (Auto) 08694 H (5716-1034) /uL Lymph # (Auto) 900 L (5636-7467) /uL [place] # (Auto) 600 (0-900) /uL Eos # (Auto) 0 (0-450) /uL Baso # (Auto) 0 (0-100) /uL Sodium 138 (137-145) mmol/L Potassium 4.9 (3.4-5.1) mmol/L Chloride 98 (98-107) mmol/L Carbon Dioxide 32 (22-32) mmol/L BUN 24 H (9-20) mg/dL Creatinine 1.28 H (0.66-1.25) mg/dL Estimated GFR 56.1 L (>60) mL/min BUN/Creatinine Ratio 18.8 (6-22) Glucose 219 H (80-110) mg/dL Calcium 9.4 (8.4-10.2) mg/dL Total Bilirubin 0.4 (0.2-1.3) mg/dL AST 20 (17-59) IU/L ALT 17 (<50) IU/L Alkaline Phosphatase 94 (38-126) U/L Total Protein 7.2 (6.3-8.2) g/dL Albumin 4.5 (3.5-5.0) g/dL Globulin 2.7 (1.7-4.1) g/dL Albumin/Globulin Ratio 1.7 (1.0-2.8) Lipase 103 (23-300) U/L SARS-CoV-2 (PCR) Negative (Negative) Imaging Data Abdominal x-ray: Radiologist's Impression: [address] [id number] ReportSigned Patient: Tho Virgen WMR#: [id number]: 4Acct:[id number]/Sex: 65 / MDate of Service: 12/27/20Loc: EDAccession Number: [id number] Procedure: XR abdomen min 2V Ordering Provider: Ramakrishna Puentes D.O. PROCEDURE: XR ABDOMEN MIN 2V INDICATIONS: severe abdominal pain TECHNIQUE: 2 views of the abdomen were acquired. COMPARISON: [facility], CT, CT ABDOMEN PELVIS W CON, 12/27/2020, 1:28. FINDINGS: Surgical changes and devices: None. Bowel: No pneumoperitoneum. The bowel gas pattern is demonstrates small bowel fluid levels. Soft tissues: Liver shadow appears enlarged. No suspicious abdominal calcifications. Bones: No suspicious bony abnormalities. IMPRESSION: Small bowel fluid levels most consistent with partial small bowel obstruction. Dictated by: Merlene Owens M.D. on 12/27/2020 at 1:57 Approved by: Merlene Owens M.D. on 12/27/2020 at 1:58 CT scan - abdomen/pelvis: Radiologist's Impression: [address] [id number] Scan ReportSigned Patient: Tho Virgen WMR#: [id number]: [id number]:[id number]/Sex: 65 / MDate of Service: 12/27/20Loc: EDAccession Number: [id number] Procedure: CT abdomen pelvis w con Ordering Provider: Ramakrishna Puentes D.O. PROCEDURE: CT ABDOMEN PELVIS W CON INDICATIONS: severe pain, concern for obstruction TECHNIQUE: After the administration of intravenous contrast, axial sections acquired from the lung bases to the pubic symphysis. Coronal and sagittal reformats were performed. For radiation dose reduction, the following was used: automated exposure control, adjustment of mA and/or kV according to patient size. COMPARISON: [facility], CT, CT ABDOMEN PELVIS W CON, 05/13/2020, 22:51. FINDINGS: Image quality: Excellent. Lung bases: Unremarkable. Heart: No significant findings. ABDOMEN: Liver: Liver is enlarged measuring 19.9 cm with steatosis. Gallbladder: Gallbladder is contracted and grossly unremarkable. Biliary ducts: Unremarkable. Pancreas: Unremarkable. Spleen: Unremarkable. Adrenal Glands: Unremarkable. Kidneys and Ureters: Kidneys demonstrate bilateral low-attenuation foci most suggestive of cysts and unchanged. Stomach and Bowel: Bowel loops demonstrate fluid-filled prominence with greatest AP dimension measuring 2.8 cm. Transition point is not clearly identified. Prominent diverticula are present within the colon without associated inflammatory change. No free fluid or free air. Peritoneum: No abnormal intraperitoneal fluid. No free air. Ventral Wall: No hernias. Abdominal Nodes: No retroperitoneal or mesenteric adenopathy by size criteria. Vessels: Aorta and inferior vena cava are normal in size. PELVIS: Pelvic Organs: Unremarkable. Bladder: Unremarkable. Pelvic Nodes: No enlarged lymph nodes. Miscellaneous: Fat containing inguinal hernias are present. Bones: Unremarkable. IMPRESSION: 1. Mild appearance of fluid-filled small bowel loops most consistent with partial small bowel obstruction. No definitive transition point is identified. 2. Diverticulosis. Dictated by: Merlene Owens M.D. on 12/27/2020 at 1:58 Approved by: Merlene Owens M.D. on 12/27/2020 at 2:01 MDM Narrative Medical decision making narrative: Patient with relatively sudden onset and severe left lower quadrant pain, no longer passing gas with some distension. Pain is reminiscent of prior bowel obstructions. Imaging would support this diagnosis. Given the distention of stomach noted on imaging an NG is placed which resulted in 800 cc of gastric contents removed prior to patient being admitted. Discharge Plan Departure Patient Disposition: Admitted As Inpatient Clinical Impression: Small bowel obstruction Admit Date/Time: 12/27/20 02:13 Admit Provider: Yen Funez
[2020-12-27] MEDS: SODIUM CHLORIDE 0.9% 1,000 ML 1000 ML IV (01:11)
[2020-12-27] MEDS: HYDROMORPHONE 0.5 MG INJ IV ×2 (01:12→03:04)
[2020-12-27] MEDS: ONDANSETRON 4 MG/2 ML INJ IV ×2 (01:12→05:40)
[2020-12-27 01:19] LABS: Add Manual Diff / Slide Review NO; Basophils Absolute Auto 0 /uL (0-100); Basophils Percent Auto 0.1 % (0-2); Eosinophils Absolute Auto 0 /uL (0-450); Eosinophils Percent Auto 0.2 % (2-4); Hematocrit 39.9 % (41-53); Hemoglobin 13.1 g/dL (13.5-17.5); Lymphocytes Absolute Auto 900 /uL (1100-4500); Mean Corpuscular HGB Conc 32.7 % (30-36); Mean Corpuscular Hemoglobin 28.8 PG (26-34); Monocytes Absolute Auto 600 /uL (0-900); Monocytes Percent Auto 4.8 % (3-14); Neutrophils Absolute Auto 11700 /uL (1500-7000); Neutrophils Percent Auto 87.9 % (50-75); Platelet Count 190 X10^3/uL (150-400); Red Blood Cell Count 4.53 X10^6/uL (4.5-5.9); Red Cell Distribution Width 14.2 % (11.6-14.8); White Blood Cell Count 13.3 X10^3/uL (4.5-11.0)
--- NOTE | 2020-12-27 01:23 | DI.CT.S_ITS ---
PROCEDURE: CT ABDOMEN PELVIS W CON INDICATIONS: severe pain, concern for obstruction TECHNIQUE: After the administration of intravenous contrast, axial sections acquired from the lung bases to the pubic symphysis. Coronal and sagittal reformats were performed. For radiation dose reduction, the following was used: automated exposure control, adjustment of mA and/or kV according to patient size. COMPARISON: [facility], CT, CT ABDOMEN PELVIS W CON, 05/13/2020, 22:51. FINDINGS: Image quality: Excellent. Lung bases: Unremarkable. Heart: No significant findings. ABDOMEN: Liver: Liver is enlarged measuring 19.9 cm with steatosis. Gallbladder: Gallbladder is contracted and grossly unremarkable. Biliary ducts: Unremarkable. Pancreas: Unremarkable. Spleen: Unremarkable. Adrenal Glands: Unremarkable. Kidneys and Ureters: Kidneys demonstrate bilateral low-attenuation foci most suggestive of cysts and unchanged. Stomach and Bowel: Bowel loops demonstrate fluid-filled prominence with greatest AP dimension measuring 2.8 cm. Transition point is not clearly identified. Prominent diverticula are present within the colon without associated inflammatory change. No free fluid or free air. Peritoneum: No abnormal intraperitoneal fluid. No free air. Ventral Wall: No hernias. Abdominal Nodes: No retroperitoneal or mesenteric adenopathy by size criteria. Vessels: Aorta and inferior vena cava are normal in size. PELVIS: Pelvic Organs: Unremarkable. Bladder: Unremarkable. Pelvic Nodes: No enlarged lymph nodes. Miscellaneous: Fat containing inguinal hernias are present. Bones: Unremarkable. IMPRESSION: 1. Mild appearance of fluid-filled small bowel loops most consistent with partial small bowel obstruction. No definitive transition point is identified. 2. Diverticulosis. Dictated by: Merlene Owens M.D. on 12/27/2020 at 1:58 Approved by: Merlene Owens M.D. on 12/27/2020 at 2:01
[2020-12-27 01:24] LABS: Alanine Aminotransferase 17 IU/L (<50); Albumin 4.5 g/dL (3.5-5.0); Albumin Globulin Ratio 1.7 (1.0-2.8); Alkaline Phosphatase 94 U/L (38-126); Aspartate Aminotransferase 20 IU/L (17-59); BUN Creatinine Ratio 18.8 (6-22); Bilirubin Total 0.4 mg/dL (0.2-1.3); Blood Urea Nitrogen 24 mg/dL (9-20); Calcium 9.4 mg/dL (8.4-10.2); Carbon Dioxide 32 mmol/L (22-32); Chloride 98 mmol/L (98-107); Estimated Glomerular Filt Rate 56.1 mL/min (>60); Globulin 2.7 g/dL (1.7-4.1); Glucose 219 mg/dL (80-110); HEMOLYSIS < 15 (0-50); Lipase 103 U/L (23-300); Potassium 4.9 mmol/L (3.4-5.1); Sodium 138 mmol/L (137-145); Total Protein 7.2 g/dL (6.3-8.2)
[2020-12-27 02:10] LABS: COVID19 - ADMIT (NP swab/PCR) Negative (Negative)
--- NOTE | 2020-12-27 02:24 | PM.HP.1 ---
History of Present Illness History of Present Illness Chief complaint: ABD Pain Narrative: 24 hours abdominal pain, nonfocal, +nausea, - fever. Last BM yesterday, no flatus for >12 hrs. Has history of SBO in the distant past that resolved spontaneously. Patient History Medical History Diabetes type 2, controlled Essential hypertension Hyperlipidemia Surgical History History of fusion of cervical spine History of sinus surgery Family & Social History Family History Father Sepsis Myocardial infarction Mother of unknown cause Social History: household members spouse,children Safety & Behavioral: Feels Safe in Current Yes Environment Tobacco & Substance use: Tobacco type cigarettes Smoking Status Former smoker alcohol intake current alcohol intake frequency a few times a month Substance Use Type does not use Meds Home Medications and Allergies Home Medications Medication Instructions Recorded Confirmed Type aspirin 81 mg tablet,delayed 81 mg PO DAILY 05/13/20 12/27/20 History release (Adult Low Dose Aspirin) atorvastatin 40 mg tablet (Lipitor) 40 mg PO QPM 05/13/20 12/27/20 History lisinopril 20 mg tablet 20 mg PO DAILY 05/13/20 12/27/20 History nifedipine 30 mg tablet,extended 30 mg PO DAILY 05/13/20 12/27/20 History release 24 hr tamsulosin 0.4 mg capsule (Flomax) 0.4 mg PO DAILY 05/13/20 12/27/20 History metformin 1,000 mg tablet,extended 1,000 mg PO BID 12/27/20 12/27/20 History release 24hr Allergies Allergy/AdvReac Type Severity Reaction Status Date / Time No Known Drug Allergies Allergy Verified 05/14/20 01:59 Review of Systems Review of Systems ROS: Yes All systems reviewed with the patient and are negative except as otherwise documented Exam Vital Signs (past 8 hours): - 12/27/20 00:59 12/27/20 01:11 12/27/20 01:32 Temperature 97.3 F L Pulse Rate 70 83 68 Respiratory Rate 18 Blood Pressure 147/76 H Pulse Oximetry 96 97 12/27/20 01:36 Temperature Pulse Rate 70 Respiratory Rate Blood Pressure 138/73 Pulse Oximetry 97 Oxygen Delivery Method Room Air Const General: cooperative and comfortable [facility] Head: normocephalic and atraumatic Face and sinus: normal facial exam Eyes Sclera: sclerae normal Neck Neck: trachea midline Chest Chest: normal inspection of the chest Resp Effort & Inspection: normal respiratory effort and able to speak in complete sentences Cardio Rate: regular rate Rhythm: regular rhythm GI Palpation: soft Other: mild tender across mid abdomen Skin Lesions: no lesions Rashes: no rashes Neuro General: patient alert, patient awake and patient oriented x3 Psych Appearance: grossly normal Objective Labs Result Diagrams: 12/27/20 01:02 12/27/20 01:02 Labs: Laboratory Results - last 24 hr 12/27/20 12/27/20 12/27/20 01:02 01:02 01:10 WBC 13.3 H RBC 4.53 Hgb 13.1 L Hct 39.9 L MCV 88.0 MCH 28.8 MCHC 32.7 RDW 14.2 Plt Count 190 Neut % (Auto) 87.9 H Lymph % (Auto) 7.0 L [place] % (Auto) 4.8 Eos % (Auto) 0.2 L Baso % (Auto) 0.1 Neut # (Auto) 94227 H Lymph # (Auto) 900 L [place] # (Auto) 600 Eos # (Auto) 0 Baso # (Auto) 0 Sodium 138 Potassium 4.9 Chloride 98 Carbon Dioxide 32 BUN 24 H Creatinine 1.28 H Estimated GFR 56.1 L BUN/Creatinine Ratio 18.8 Glucose 219 H Calcium 9.4 Total Bilirubin 0.4 AST 20 ALT 17 Alkaline Phosphatase 94 Total Protein 7.2 Albumin 4.5 Globulin 2.7 Albumin/Globulin Ratio 1.7 Lipase 103 SARS-CoV-2 (PCR) Negative Assessment & Plan Assessment & Plan narrative: SBO with history for SBO managed non operative. Plan: NGT and if low volume, gastrografin challenge later to day. Not clear transition on CT scan that i reviewed. Bowel rest with possible surgery. COVID-19 COVID-19 status: Negative
[2020-12-27] MEDS: LIDOCAINE 2% (GLYDO) 6 ML GEL TOP (02:25)
[2020-12-27] MEDS: MIDAZOLAM 2 MG/2 ML VIAL IV (02:25)
--- NOTE | 2020-12-27 02:44 | DI.RAD.S_ITS ---
PROCEDURE: XR ABDOMEN 1V INDICATIONS: check ng tube placement TECHNIQUE: One view of the abdomen acquired. COMPARISON: [facility], , XR ABDOMEN MIN 2V, 12/27/2020, 1:05. FINDINGS: Surgical changes and devices: Interval placement of NG tube, projecting to the stomach. Bowel: Visualized upper and mid abdominal bowel gas pattern is nonspecific. Soft tissues: No suspicious abdominal calcifications. Visualized solid organ contours appear normal in size. Bones: No suspicious bony lesions. IMPRESSION: NG tube projects to stomach. Dictated by: Omega Valverde M.D. on 12/27/2020 at 7:58 Approved by: Omega Valverde M.D. on 12/27/2020 at 7:59
[2020-12-27] MEDS: LACTATED RINGERS 1,000 ML 100 ML IV ×2 (03:15→12:52)
[2020-12-27] MEDS: ENOXAPARIN 40 MG/0.4 ML SYRINGE SUBCUT (08:09)
[2020-12-27] MEDS: PANTOPRAZOLE 40 MG VIAL 20 MG IV (08:10)
[2020-12-27] MEDS: SODIUM CHLORIDE 0.9% FLUSH 10 ML IV (08:12)
--- NOTE | 2020-12-27 08:32 | DI.RAD.S_ITS ---
PROCEDURE: [place] SMALL BOWEL FOLLOW THROUGH INDICATIONS: small bowel obstruction. Perform with gastrografin COMPARISON: [facility], , [place] SMALL BOWEL FOLLOW THROUGH, 05/14/2020, 7:01. FINDINGS: KUB: Preprocedural senior applications developer film demonstrates a normal bowel gas pattern. No suspicious abdominal calcifications. Visualized solid organ contours appear normal. No suspicious bony abnormalities. Nasogastric tube in the stomach. Contrast is noted in the bladder from recent CT study. Small bowel: There is normal transit time of barium through the small bowel. Small bowel loops are of normal caliber throughout. Mucosal folds are smooth and of normal thickness. No strictures, intraluminal masses, or extrinsic mass effects are noted. Contrast in the colon is noted on 3 hour film IMPRESSION: Unremarkable Gastrografin small bowel follow-through. Transit time is less than 3 hours. Approved by: Sd Davies M.D. on 12/27/2020 at 11:36
--- NOTE | 2020-12-27 15:12 | CM.DANOTE ---
Patient is a 65 yo male who was admitted on 12/27/20 for Abd Pain. Pt has MCR and for [employer] for insurance and his PCP is Selena Lal. EMR was reviewed. Per Surgeon, pt with a hx of SBO in Apr 2020 this year and was able to be conservatively treated and now admitted for Partial SBO. Pt to have SBFT today to determine if surgical intervention needed vs conservative tx. SW attempted to meet bedside with pt but having imaging from first contrast. SW attempted to meet with pt again and pt off floor. Pt currently with NGT, and bowel rest and waiting for results to determine if surgery needed. Plan: SW to follow closely to determine discharge planning needs pending results of SBFT towards likely plan of home with spouse when medically stable. COCO Ruelas Discharge Planning/Care Management Advanced directive, confirm from FAMILY Start: 12/27/20 04:03 Freq: Q24H Status: Active Protocol: Document 12/27/20 10:55 CM (Rec: 12/27/20 10:55 CM [id number]) Advance Directive, confirm on record Time 10:55 Person contacted patient Copy received No Advanced directive available on record No CM Discharge Assessment Start: 12/27/20 15:11 Freq: Status: Active Protocol: Document 12/27/20 15:11 BF (Rec: 12/27/20 15:12 BF [id number]) Discharge Planning Assessment Assigned Primary School Teacher COCO Baca DPOA/Assigned Designee Name spouse Beatriz Contact Information [phone] Advance Directives? No Advance Directives on File No History Provided By Patient,Medical Record Has Patient been admitted in last 30 No days? Prior Living Arrangements House Household Members spouse,children Type of transporation used prior to Drives own vehicle admit Independent with ADL's Yes Is patient alert and oriented? Yes Caregiver for Another No Barriers to Discharge No Discharge Plan Home Transportation Arrangement Family can provide transport at d/c Referrals Initiated None needed Review Status In Process Please Provide Date Initial DC 12/27/20 Assessment Was Performed Next Review Type Continued Stay Review
[2020-12-27] MEDS: ATORVASTATIN 20 MG TABLET 40 MG PO (21:42)
[2020-12-28 00:10] VITALS: BP 118/68; PULSE 63; RESP 14; TEMP 36.7; O2SAT 97
[2020-12-28 03:00] VITALS: O2SAT 96
[2020-12-28] MEDS: LACTATED RINGERS 1,000 ML 100 ML IV (03:42)
[2020-12-28 06:36] VITALS: BP 120/73; PULSE 61; RESP 18; TEMP 36.4; O2SAT 96
[2020-12-28 06:55] LABS: Add Manual Diff / Slide Review NO; Basophils Absolute Auto 0 /uL (0-100); Basophils Percent Auto 0.5 % (0-2); Eosinophils Absolute Auto 100 /uL (0-450); Eosinophils Percent Auto 1.3 % (2-4); Hematocrit 39.2 % (41-53); Hemoglobin 12.9 g/dL (13.5-17.5); Lymphocytes Absolute Auto 1800 /uL (1100-4500); Lymphocytes Percent Auto 26.5 % (25-40); Mean Corpuscular HGB Conc 32.9 % (30-36); Mean Corpuscular Hemoglobin 29.4 PG (26-34); Mean Corpuscular Volume 89.2 fL (80-100); Monocytes Absolute Auto 600 /uL (0-900); Monocytes Percent Auto 8.4 % (3-14); Neutrophils Absolute Auto 4300 /uL (1500-7000); Neutrophils Percent Auto 63.3 % (50-75); Platelet Count 175 X10^3/uL (150-400); Red Blood Cell Count 4.39 X10^6/uL (4.5-5.9); Red Cell Distribution Width 14.1 % (11.6-14.8); White Blood Cell Count 6.7 X10^3/uL (4.5-11.0)
[2020-12-28 07:04] LABS: Alanine Aminotransferase 14 IU/L (<50); Albumin Globulin Ratio 1.5 (1.0-2.8); Alkaline Phosphatase 82 U/L (38-126); Aspartate Aminotransferase 17 IU/L (17-59); BUN Creatinine Ratio 13.7 (6-22); Bilirubin Total 0.6 mg/dL (0.2-1.3); Blood Urea Nitrogen 16 mg/dL (9-20); Calcium 9.3 mg/dL (8.4-10.2); Carbon Dioxide 32 mmol/L (22-32); Chloride 105 mmol/L (98-107); Estimated Glomerular Filt Rate > 60.0 mL/min (>60); Globulin 2.6 g/dL (1.7-4.1); Glucose 146 mg/dL (80-110); HEMOLYSIS < 15 (0-50); Potassium 4.8 mmol/L (3.4-5.1); Sodium 140 mmol/L (137-145); Total Protein 6.6 g/dL (6.3-8.2)
[2020-12-28 07:12] LABS: NT-proBNP (BNP-Adult 18+) 274 pg/mL (<125)
[2020-12-28 08:05] VITALS: BP 143/85; PULSE 63; RESP 18; TEMP 36.6; O2SAT 96
[2020-12-28] MEDS: INSULIN LISPRO 100 UNIT/ML 3ML VIAL SUBCUT (08:10)
[2020-12-28] MEDS: ENOXAPARIN 40 MG/0.4 ML SYRINGE SUBCUT (08:14)
[2020-12-28] MEDS: PANTOPRAZOLE 40 MG VIAL 20 MG IV (08:15)
[2020-12-28] MEDS: lisinopriL 20 MG TABLET PO (08:15)
[2020-12-28] MEDS: TAMSULOSIN 0.4 MG CAPSULE PO (08:16)
[2020-12-28] MEDS: NIFEdipine 30 MG TAB ER PO (08:16)
--- NOTE | 2020-12-28 08:50 | CM.DPC ---
DCP: continued: case received, EMR reviewed, d/c order noted. Met with pt who confirms that Dr. Andres was here earlier and told him if I feel ready to go he will d/c me. He is just starting to eat solids, MARISELA Anaya will monitor and plan is for home with his Beatriz to pick him up.
--- NOTE | 2020-12-28 10:19 | PC.NURSE ---
Assess- Patient is alert and oriented x3, he denies pain or discomfort. He has been voiding and having bowel movements. Patient diet order was upgraded to a full liquid and he did tolerated this well. Patient bowel tones are positive, and his abdomen is not distended. He is looking forward to going home as he has been discharged from the hospital.
== END 2020-12-28 11:36 | disposition home or self-care (01) | DRG 390 ==
LOC: ED 02:12 → AC 02:14
PROVIDERS: Admitting Provider Surgery; Emergency Provider Emergency Medicine; PCP Internal Medicine; Referring Provider Emergency Medicine; Visit Provider Surgery
DX: K56.609 Unspecified intestinal obstruction, unspecified as to partial versus complete obstruction (principal); E78.5 Hyperlipidemia, unspecified; I10 Essential (primary) hypertension; E11.9 Type 2 diabetes mellitus without complications; Z87.891 Personal history of nicotine dependence; Z20.822 Contact with and (suspected) exposure to COVID-19; Z79.84 Long term (current) use of oral hypoglycemic drugs
CPT/HCPCS: 36415; 74018; 74019; 74177; 74250; 80053; 82962; 83690; 83880; 85025; 87635; 96361; 96374; 96375; 99231; 99284; 99285; C9803; C9113; J1170; J1650; J1815; J2250; J2405; Q9967

== ENCOUNTER 2022-02-10 12:59 | Emergency (ER) | payer MEDICARE, OTHER, SELFPAY ==
[2020-12-27 03:19] VITALS: BMI 29.4
[2022-02-10 13:00] VITALS: BP 119/67; PULSE 72; RESP 14; TEMP 36.4; O2SAT 97; BMI 22.2
--- NOTE | 2022-02-10 14:06 | ED_ITS ---
HPI - Male Genitourinary <Felix Nava PA-C - Last Filed: 02/10/22 14:16> General Chief complaint: Urogenital-Male Stated complaint: Left side groin pain Time Seen by Provider: 02/10/22 13:10 Source: patient Mode of arrival: Ambulatory History of Present Illness HPI Narrative: Patient is a 58-year-old male who presents to the emergency room today with complaint of left-sided groin pain that started after he was cutting some wood yesterday. Patient denied any heavy lifting but just states he was doing repetitive chopping motion and then noticed the pain in the left groin area. Patient states the pain is exacerbated by doing that activity continuously and states that the pain is lessened by not doing that activity at all. Patient also states that he might only notices the pain when he is walking up stairs. States when the pain is at its worst is about a 9 and is at its least is about 0. Denies any genitourinary concerns denies any other related genitourinary history. Patient states he is not taking any medications for the pain at this time. Denies any other concerns Related Data Home Medications Medication Instructions Recorded Confirmed aspirin 81 mg tablet,delayed 81 mg PO DAILY 05/13/20 12/27/20 release (Adult Low Dose Aspirin) atorvastatin 40 mg tablet (Lipitor) 40 mg PO QPM 05/13/20 12/27/20 lisinopril 20 mg tablet 20 mg PO DAILY 05/13/20 12/27/20 nifedipine 30 mg tablet,extended 30 mg PO DAILY 05/13/20 12/27/20 release 24 hr tamsulosin 0.4 mg capsule (Flomax) 0.4 mg PO DAILY 05/13/20 12/27/20 metformin 1,000 mg tablet,extended 1,000 mg PO BID 12/27/20 12/27/20 release 24hr Allergies Allergy/AdvReac Type Severity Reaction Status Date / Time No Known Drug Allergies Allergy Verified 02/10/22 13:05 Review of Systems <Felix Nava PA-C - Last Filed: 02/10/22 14:16> Review of Systems Narrative: R.O.S.: General: No fever, chills or fatigue. Cardiovascular: No chest pain or palpitations Respiratory: No S.O.B. HEENT: No congestion, ear pain, rhinorrhea, sore throat or tinnitus Gastrointestinal: No nausea or vomiting : No urinary concerns Skin: No rash or associated abnormalities Musculoskeletal: Left groin pain. ?? Neurological: Awake, alert and in not apparent distress. No Headaches, changes in vision or other related neurological concerns. Patient History <Felix Nava PA-C - Last Filed: 02/10/22 14:16> Medical History Diabetes type 2, controlled Essential hypertension Hyperlipidemia Surgical History History of fusion of cervical spine History of sinus surgery Family History Father Sepsis Myocardial infarction Mother of unknown cause Social History household members: spouse and children Smoking Status: Former smoker alcohol intake: current Smoking Status: Former smoker alcohol intake frequency: a few times a month Substance Use Type: does not use Exam <Felix Nava PA-C - Last Filed: 02/10/22 14:16> Narrative Exam Narrative: Physical Exam: ? General: normal appearance, well developed, well nourished, alert, and awake. Not in acute distress. ? Head: Normocephalic, no lesions. Chest: Lungs CTAB, no rales, rhonchi or wheezes. ?? Heart: RRR, no murmurs, rubs or gallops. Eyes: PERRLA, EOM's full, conjunctivae clear. ? Neuro: Physiological, no localizing findings, CN3-12 intact. ?? Extremities: Warm, well perfused, FROM, no deformities, no edema. ?? : Patient has tenderness to palpation at the left inguinal canal area. When asked to bear down no abnormalities were discovered. Pain was also not elicited on flexion, extension or abduction of the left hip. Otherwise exam was within normal limits as patient did not have any erythema swelling lesions or abnormalities noted on visual inspection. Skin: Normal, no rashes, no lesions noted. PSYCHIATRIC: The mood is good, no blunted affect. Speech is clear. Thought process is linear, thought content is appropriate. The voice is without significant inflection. Gastrointestinal: Soft; NT; ND; Pos BS with Neg. rebound tenderness. No scars or major deformities noted on Visual Inspection. Initial Vital Signs Initial Vital Signs: Vital Signs Temperature 97.6 F 02/10/22 13:00 Pulse Rate 72 02/10/22 13:00 Respiratory Rate 14 02/10/22 13:00 Blood Pressure 119/67 02/10/22 13:00 Pulse Oximetry 97 02/10/22 13:00 Oxygen Delivery Method 02/10/22 13:00 <Avinash Crockett DO - Last Filed: 02/10/22 14:43> Initial Vital Signs Initial Vital Signs: Vital Signs Temperature 97.6 F 02/10/22 13:00 Pulse Rate 72 02/10/22 13:00 Respiratory Rate 14 02/10/22 13:00 Blood Pressure 119/67 02/10/22 13:00 Pulse Oximetry 97 02/10/22 13:00 Oxygen Delivery Method 02/10/22 13:00 Course <Felix Nava PA-C - Last Filed: 02/10/22 14:16> Vital Signs Vital signs: Vital Signs - 8 hr 02/10/22 13:00 02/10/22 14:24 Temperature 97.6 F Pulse Rate 72 62 Respiratory Rate 14 Blood Pressure 119/67 130/74 Pulse Oximetry 97 99 Oxygen Delivery Method Room Air Room Air <Avinash Crockett DO - Last Filed: 02/10/22 14:43> Vital Signs Vital signs: Vital Signs - 8 hr 02/10/22 13:00 02/10/22 14:24 Temperature 97.6 F Pulse Rate 72 62 Respiratory Rate 14 Blood Pressure 119/67 130/74 Pulse Oximetry 97 99 Oxygen Delivery Method Room Air Room Air MDM - Male Genitourinary <Felix Nava PA-C - Last Filed: 02/10/22 14:16> MDM Narrative Medical decision making narrative: Patient presents with a history of pain in left groin area that started after repetitive strenuous activities. Physical exam and history did not reveal any concern for torsion strangulation or incarceration of hernia. Patient's physical exam and history are consistent with a growing sprain or strain. Discussed growing sprain strains with the patient and advised the patient to refrain from any strenuous or repetitive activities involving the groin area. Also advised patient to take taze-jko-rqosliz ibuprofen or naproxen for pain. Patient also advised to return to the emergency room she any emergent concerns arise. Patient agrees with plan Discharge Plan Departure Patient Disposition: Home Clinical Impression: Groin strain Instructions: DI for Groin Strain Activity Restrictions/Additional Instructions: *You have been diagnosed with strain to her left groin area. I suggest she refrain from any strenuous or repetitive activity involving the left groin area. I also suggest you take [id number] ibuprofen or naproxen for pain. Also please return to the emergency room should any emergent concerns arise. [ ] *What to do: *Please continue to take your regular medications as directed. [ ] New medication prescriptions sent to your pharmacy: [ ] [ ] New medication written as a paper prescription [x] No new medications given *Please follow up with your primary care provider in 2-3 days, call for an appointment. Let them know you were seen in the Emergency Department and that we ask that you be seen in follow up. We will electronically transmit a record of today's note if your PCP is in our system *If you do not have a primary care provider please contact the [facility] Resource line at [phone]. They will ask some questions about your medical history and help get you set up with a doctor in the community. *Return to Emergency Department if you should have any new, worsening or concerning symptoms, such as [fever greater than 101 F, shaking chills, worsening pain, persistent vomiting or other bothersome symptoms] Prescriptions: No Action metformin 1,000 mg tablet extended release 24hr 1,000 mg PO BID tamsulosin [Flomax] 0.4 mg capsule 0.4 mg PO DAILY atorvastatin [Lipitor] 40 mg tablet 40 mg PO QPM Rx Instructions: orally aspirin [Adult Low Dose Aspirin] 81 mg tablet,delayed release (DR/EC) 81 mg PO DAILY lisinopril 20 mg tablet 20 mg PO DAILY nifedipine 30 mg tablet extended release 24hr 30 mg PO DAILY Referrals: Selena Lal MD [Primary Care Provider] - Visit Report Forms: Patient Portal/API <Avinash Crockett DO - Last Filed: 02/10/22 14:43> [facility]: Dr Crockett Co-Sign Statement: I was available for consultation during this patient's emergency department visit. This chart is signed by myself for administrative purposes only. I did not have direct contact with this patient during this visit. They were seen independently by the APC.
[2022-02-10 14:24] VITALS: BP 130/74; PULSE 62; O2SAT 99
== END 2022-02-10 14:26 | disposition home or self-care (01) ==
PROVIDERS: Emergency Provider Physician Assistant; PCP Internal Medicine
DX: S39.011A Strain of muscle, fascia and tendon of abdomen, initial encounter (principal); X50.3XXA Overexertion from repetitive movements, initial encounter
CPT/HCPCS: 99281

== ENCOUNTER 2022-03-31 20:18 | Emergency (ER) | payer MEDICARE, OTHER, SELFPAY ==
[2020-12-27 03:19] VITALS: BMI 29.4
[2022-03-31 20:28] VITALS: BP 133/68; PULSE 77; RESP 20; TEMP 37.2; O2SAT 99; BMI 22.9
--- NOTE | 2022-03-31 23:26 | PC.NURSE ---
Pt reports was diagnosed with left inguinal hernia. Pain today has been increased and pt reports more swelling. Rates pain 3/10 at this time. Has been taking ibuprofen for pain.
--- NOTE | 2022-04-01 00:02 | ED.ABDPAIN ---
HPI - Abdominal Pain General Chief Complaint: Abdominal Pain Stated Complaint: Hernia pain Time Seen by Provider: 03/31/22 23:12 Source: patient Mode of arrival: Ambulatory History of Present Illness HPI narrative: Patient is a 66-year-old male history of hypertension diabetes hyperlipidemia presenting today with left groin pain. He has a known inguinal hernia he actually is scheduled to see surgery for preoperative evaluation in a couple weeks. He says as long as he is lying down or in his recliner he has no pain or swelling. However today he has had frequent episodes of pain he has taken as much as 1600 mg of ibuprofen at once which actually did help. He continue to take ibuprofen throughout the day is because of his pain. He usually isn't painful. He has he has been lying flat for some time he has not been ambulatory he has not had pain while waiting in the ED. No fever or chills. No changes in bowel habits no nausea or vomiting no fevers. No other symptoms this time. Related Data Home Medications Medication Instructions Recorded Confirmed aspirin 81 mg tablet,delayed 81 mg PO DAILY 05/13/20 12/27/20 release (Adult Low Dose Aspirin) atorvastatin 40 mg tablet (Lipitor) 40 mg PO QPM 05/13/20 12/27/20 lisinopril 20 mg tablet 20 mg PO DAILY 05/13/20 12/27/20 nifedipine 30 mg tablet,extended 30 mg PO DAILY 05/13/20 12/27/20 release 24 hr tamsulosin 0.4 mg capsule (Flomax) 0.4 mg PO DAILY 05/13/20 12/27/20 metformin 1,000 mg tablet,extended 1,000 mg PO BID 12/27/20 12/27/20 release 24hr Previous Rx's Medication Instructions Recorded hydrocodone 5 mg-acetaminophen 325 1 tab PO Q6H PRN pain #10 tabs 04/01/22 mg tablet Allergies Allergy/AdvReac Type Severity Reaction Status Date / Time No Known Drug Allergies Allergy Verified 02/10/22 13:05 Review of Systems Review of Systems Narrative: GENERAL: Denies chills,fever HEENT: Denies throat pain RESPIRATORY: Denies dyspnea, cough, wheezing CARDIOVASCULAR: Denies chest pain, palpitations GASTROINTESTINAL: see HPI MUSCULOSKELETAL: Denies extremity pain, injury SKIN: No rash, no laceration, no pruritus NEUROLOGIC: Denies weakness, dizziness, headache, numbness 8 point review of systems is negative except for those stated above and HPI Patient History Medical History Diabetes type 2, controlled Essential hypertension Hyperlipidemia Surgical History History of fusion of cervical spine History of sinus surgery Family History Father Sepsis Myocardial infarction Mother of unknown cause Social History household members: spouse and children Smoking Status: Current every day smoker alcohol intake: current Smoking Status: Current every day smoker alcohol intake frequency: a few times a month Substance Use Type: does not use Exam Initial Vital Signs Initial Vital Signs: Vital Signs Temperature 98.9 F 03/31/22 20:28 Pulse Rate 77 03/31/22 20:28 Respiratory Rate 20 03/31/22 20:28 Blood Pressure 133/68 03/31/22 20:28 Pulse Oximetry 99 03/31/22 20:28 Oxygen Delivery Method 03/31/22 20:28 GENERAL: Alert pleasant 66-year-old male no acute distress CARDIOVASCULAR: peripheral pulses in tact, cap refill <2 sec RESPIRATORY: No respiratory distress, speaks in full sentences without difficulty ABDOMEN: Soft, nontender, no guarding or rebound : Left inguinal area no swelling no pain no testicular pain or swelling EXTREMITIES: Normal range of motion, no clubbing or edema. Neurovascularly intact NEUROLOGICAL: Cranial nerves II through XII grossly intact. Normal gait and speech. SKIN: Warm, dry, no petechiae, no rashes or lesions. Course Orders Ordered: Discontinued Medications Hydrocodone Bitart/Acetaminophen (Hydrocodone/Acet 5/325 Prepack) 1 bottle MISC SEEINSTR ONE Stop: 04/01/22 00:19 Last Admin: 04/01/22 00:23 Dose: 1 bottle Documented By: PATTI Vital Signs Vital signs: Vital Signs - 8 hr 03/31/22 20:28 04/01/22 00:27 Temperature 98.9 F Pulse Rate 77 76 Respiratory Rate 20 Blood Pressure 133/68 104/55 L Pulse Oximetry 99 98 Oxygen Delivery Method Room Air Room Air MDM - Abdominal Pain MDM Narrative Medical decision making narrative: Patient has known chronic hernia. I do not appreciate hernia at this time. We discussed proper pain management will send him home with [place]. At this time I really do not see any need for imaging. He currently has no pain he has no palpable swelling certainly not incarcerated hernia. Discharge Plan Departure Patient Disposition: Home Clinical Impression: Hernia, inguinal, left Instructions: DI for Groin Hernia Activity Restrictions/Additional Instructions: *You have been diagnosed with left groin hernia *What to do: At this time I would do not appreciate hernia. Be sure that when you do appreciate swelling or pain is they were able to lay flat and push it back in. If you are unable to do this then it is concerning any need to come to the ED. he has follow-up with surgery as scheduled. *Continue to take medications as directed Ibuprofen/Motrin 600 mg every 6 hours (NO MORE) [place] 1 tablet every 6 hours if needed for severe pain *Follow up with your primary care provider in 2-3 days or call [phone] *Return to ER if you should have persistent swelling increased pain vomiting or any new, worsening or concerning symptoms CONTROLLED SUBSTANCE DISCHARGE (Narcotoic/benzodiazepine/Flexeril/Phenergan) 1. You have been prescribed narcotic medications, it does have acetaminophen/Tylenol/paracetamol in it, DO NOT TAKE MORE THAN 4,00mg in 24 hours of Tylenol. TRAMADOL DOES NOT CONTAIN TYLENOL 2. Please understand that we cannot provide further refills of narcotics, benzodiazepines or controlled substances through the ED and her pain management will need to be through your provider. 3. While on these medications you cannot drive or operate heavy machinery. 4. You cannot sign legal documents or perform any duties such as this. 5. As long as you're taking opiate pain medications he should also be taking a stool softener such as Colace, Dulcolax, MiraLAX or prune juice, to help avoid constipation. Prescriptions: New hydrocodone-acetaminophen 5-325 mg tablet 1 tab PO Q6H PRN (Reason: pain) Qty: 10 0RF No Action metformin 1,000 mg tablet extended release 24hr 1,000 mg PO BID tamsulosin [Flomax] 0.4 mg capsule 0.4 mg PO DAILY atorvastatin [Lipitor] 40 mg tablet 40 mg PO QPM Rx Instructions: orally aspirin [Adult Low Dose Aspirin] 81 mg tablet,delayed release (DR/EC) 81 mg PO DAILY lisinopril 20 mg tablet 20 mg PO DAILY nifedipine 30 mg tablet extended release 24hr 30 mg PO DAILY Referrals: Selena Lal MD [Primary Care Provider] - Visit Report Forms: Patient Portal/API
[2022-04-01] MEDS: HYDROCODONE/ACET 5/325 PREPACK 1 BOTTLE MISC (00:23)
[2022-04-01 00:27] VITALS: BP 104/55; PULSE 76; O2SAT 98
== END 2022-04-01 00:29 | disposition home or self-care (01) ==
PROVIDERS: Emergency Provider Emergency Medicine; PCP Internal Medicine
DX: K40.90 Unilateral inguinal hernia, without obstruction or gangrene, not specified as recurrent (principal)
CPT/HCPCS: 99281; 99283

== ENCOUNTER → 2022-04-11 10:00 | Outpatient (CLI) | payer MEDICARE, OTHER, SELFPAY ==
[2020-12-27 03:19] VITALS: BMI 29.4
[2022-04-11 11:03] LABS: COVID19 -Nasal RAPID Negative (Negative)
== END ==
PROVIDERS: PCP Internal Medicine; Visit Provider Surgery
DX: Z01.812 Encounter for preprocedural laboratory examination (principal); Z20.822 Contact with and (suspected) exposure to COVID-19
CPT/HCPCS: 87635; C9803

== ENCOUNTER 2022-04-12 06:39 | Day surgery (SDC) | payer MEDICARE, OTHER, SELFPAY ==
[2020-12-27 03:19] VITALS: BMI 29.4
[2022-04-07 13:27] VITALS: BMI 24.2
[2022-04-12] VITALS (7 sets, daily range): BP systolic 101–128; BP diastolic 62–73; PULSE 57–75; RESP 12–16; TEMP 36.1–36.6; O2SAT 96–99; BMI 24.2
[2022-04-12] MEDS: LACTATED RINGERS 1,000 ML 100 ML IV (07:30)
--- NOTE | 2022-04-12 07:39 | PM.PREOP ---
Pre-operative Note Interval Note History & Physical reviewed/Exam performed by Physician: Yes Changes to H&P: No
[2022-04-12] MEDS: CEFAZOLIN 2 GM/100 ML PREMIX 100 ML IV (07:50)
--- NOTE | 2022-04-12 08:09 | SUR.OPER ---
Supine on padded OR bed, head on pillow, arms secured on padded arm boards at <90 degrees abduction, legs uncrossed, safety belt at thigh.
[2022-04-12] MEDS: BUPIVACAINE 0.5% (PF) VIAL 30 ML INJ (08:26)
--- NOTE | 2022-04-12 09:14 | P.OP_ITS ---
Operative Date/Time/Diagnoses Date of procedure: 04/12/22 Time of procedure: 09:14 Pre-op diagnosis: Left inguinal hernia Post-op diagnosis: same Procedure & Clinicians Procedure: Open left inguinal hernia repair with mesh Same procedure as scheduled: Yes Indications: Symptomatic reducible left inguinal hernia. Surgeon: Hollis Andres Anesthesia Type: General Operative Notes Findings: Indirect hernia defect. No direct floor defect Specimen(s): none sent Estimated Blood Loss (mL): 10 Procedure in detail: The patient was placed supine on the table and bilateral lower extremity compression devices were applied. Anesthesia was induced they were intubated with an LMA and received Ancef. A time-out was performed. They were prepped and draped in sterile fashion. The left external inguinal ring and the anterior superior iliac crest were identified and marked. 1 finger breath above the inguinal ligament the skin was infiltrated with 0.25% bupivacaine. The skin incision was made, the subcutaneous tissues were divided with electrocautery exposing the external oblique aponeurosis which was then opened along the di rection of its fibers. Using blunt dissection the internal oblique aporneurosis was from the external oblique upper leaflet. The cord was carefully dissected away from the inguinal canal adjacent to the pubic tubercle. The cord including the vas deferens, testicular bloody supply, ilioguinal and genital nerve were encircled with a Loki drain. No direct floor defect was identified.. The cremasteric fibers surrounding the cord were divided adjacent to the internal ring. The vas deferens and the testicular vessels were preserved and protected. The cord contents were carefully explored. There was a small indirect hernia on the anterior medial aspect of the cord which was skeletonized away from the vas deferens and testicular blood supply. The indirect hernia was skeletonized back to the internal ring, the sac was ligated with Vicryl suture and transected. The remnant reduced spontaneously into the abdomen. A 7x 15 cm lightweight Bard Pro Loop hernia mesh was anchored to the insertion of the rectus muscle at the pubic tubercle such that there was approximately 2 cm of tubercle overlap with Ethibond. The inferior edge of the mesh was secured to the shelving edge of the inguinal ligament using Ethibond. Interrupted 3 0 Vicryl suture was used to anchor the superior aspect of the mesh to the conjoined tendon in several places. The tails were then reapproximated loosely around the spermatic cord. The tails of the mesh were then tucked under the external oblique aponeurosis. The repair was checked for hemostasis. The wound was irrigated with sterile saline. The external oblique aponeurosis was reapproximated in a running fashion using 3 0 Vicryl. The subcutaneous tissues were reapproximated with 3 0 Vicryl skin closed with 4 0 Monocryl followed by the application of Dermabond. At the end of the operation I ensured that both testicles were within the scrotum. The sponge instrument count at the end operation was correct. The patient emerged from anesthesia was extubated and transferred to the postoperative care unit in stable condition. A total of 30 ml of of 0.25% bupivicaine was used to infiltrate the skin. Complications: none Post-operative Condition: stable Disposition: same day surgery
== END 2022-04-12 10:54 | disposition home or self-care (01) ==
PROVIDERS: PCP Family Medicine; Referring Provider Surgery; Visit Provider Surgery
PROC: (CPT 49505; principal; 2022-04-12 07:45)
DX: K40.90 Unilateral inguinal hernia, without obstruction or gangrene, not specified as recurrent (principal); E11.9 Type 2 diabetes mellitus without complications; I10 Essential (primary) hypertension; Z79.84 Long term (current) use of oral hypoglycemic drugs
CPT/HCPCS: 49505; J0690; J1885; J2405; J2704; J3010

== ENCOUNTER 2023-10-10 08:09 | Emergency (ER) | payer MEDICARE, OTHER, SELFPAY ==
[2020-12-27 03:19] VITALS: BMI 29.4
[2023-10-10 08:23] VITALS: BP 135/65; PULSE 55; RESP 18; TEMP 36.7; O2SAT 98; BMI 22.5
--- NOTE | 2023-10-10 08:26 | DI.RAD.S_ITS ---
PROCEDURE: XR HIP W PEL IF DONE LT 2V INDICATIONS: leg pain after fall TECHNIQUE: AP pelvis with lateral view(s) of the left hip(s). COMPARISON: None. FINDINGS: Bones: No fractures or dislocations. Pelvic ring appears intact. No suspicious bony lesions. [id number] bilateral degenerative hip joint space narrowing. Degenerative changes are present within the lower lumbar spine. Soft tissues: The visualized bowel gas pattern is normal. No suspicious soft tissue calcifications. 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 Dictated by: Merlene Owens M.D. on 10/10/2023 at 8:55 Approved by: Merlene Owens M.D. on 10/10/2023 at 8:55
--- NOTE | 2023-10-10 08:55 | ED.LOWEXIN ---
HPI - Extremity Injury (Lower) General Chief Complaint: Extremity Injury, Lower Stated Complaint: lower back/hip pain Time Seen by Provider: 10/10/23 08:54 Source: patient and family Mode of arrival: Ambulatory History of Present Illness HPI Narrative: Patient is a 67-year-old male with history of diabetes presenting today with left-sided back and leg pain. He reports that 5 days ago he was working on a roof getting mold off the roof. 4 days ago he was on the ladder he sinus slipped on a ladder about 3 ft up he did not fall he caught himself but has been having increasing left lower back pain radiating down his leg. Did not hit his head no injuries not on antiplatelet or anticoagulation medication. He is able to bear weight. No changes in bowel or bladder habits no fever or chills. He has been taking Motrin without any significant relief Related Data Home Medications Medication Instructions Recorded Confirmed aspirin 81 mg tablet,delayed 81 mg PO DAILY 05/13/20 06/22/23 release (Adult Low Dose Aspirin) atorvastatin 40 mg tablet (Lipitor) 40 mg PO QPM 05/13/20 06/22/23 lisinopril 20 mg tablet 20 mg PO DAILY 05/13/20 06/22/23 tamsulosin 0.4 mg capsule (Flomax) 0.4 mg PO DAILY 05/13/20 06/22/23 metformin 1,000 mg tablet,extended 1,000 mg PO BID 12/27/20 06/22/23 release 24hr (osmotic) Previous Rx's Medication Instructions Recorded docusate sodium 100 mg capsule 100 mg PO BID #30 caps 04/12/22 (Colace) ibuprofen 200 mg tablet 400 mg (2 x 200 mg) PO Q6H #60 tabs 04/12/22 lidocaine 5 % topical patch 1 patch topical DAILY PRN pain #30 10/10/23 ea methocarbamol 750 mg tablet 750 mg PO Q12H PRN muscle spasm 10/10/23 #14 tabs Allergies Allergy/AdvReac Type Severity Reaction Status Date / Time No Known Drug Allergies Allergy Verified 10/10/23 08:23 Patient History Medical History Raynaud disease BPH (benign prostatic hyperplasia) Hyperlipidemia Essential hypertension Diabetes type 2, controlled Surgical History History of fusion of cervical spine History of sinus surgery Family History Father Sepsis Myocardial infarction Mother of unknown cause Social History household members: spouse and children Smoking Status: Current every day smoker alcohol intake: current Smoking Status: Current every day smoker alcohol intake frequency: a few times a month Substance Use Type: does not use Exam Initial Vital Signs Initial Vital Signs: Vital Signs Temperature 98.1 F 10/10/23 08:23 Pulse Rate 55 L 10/10/23 08:23 Respiratory Rate 18 10/10/23 08:23 Blood Pressure 135/65 10/10/23 08:23 Pulse Oximetry 98 10/10/23 08:23 Oxygen Delivery Method Room Air 10/10/23 08:23 GENERAL: Alert 67-year-old male appears uncomfortable CARDIOVASCULAR: peripheral pulses in tact, cap refill <2 sec RESPIRATORY: No respiratory distress, speaks in full sentences without difficulty EXTREMITIES: Normal range of motion, no clubbing or edema. Neurovascularly intact BACK: Left lower lumbar pain and buttock pain no midline tenderness NEUROLOGICAL: Cranial nerves II through XII grossly intact. Normal gait and speech. Left leg distal pedal pulse intact no gross bony deformity SKIN: Abrasion left lateral thigh no surrounding erythema no drainage Course Orders Ordered: ED Orders 10/10/23 08:26 XR hip w pel if done LT 2V Stat Discontinued Medications Ketorolac Tromethamine (Ketorolac 30 Mg/Ml Vial) 30 mg IM NOW ONE Stop: 10/10/23 09:08 Last Admin: 10/10/23 09:16 Dose: 30 mg Documented By: EMMANUEL Vital Signs Vital signs: Vital Signs - 8 hr 10/10/23 08:23 10/10/23 09:20 Temperature 98.1 F Pulse Rate 55 L 61 Respiratory Rate 18 16 Blood Pressure 135/65 103/58 L Pulse Oximetry 98 99 Oxygen Delivery Method Room Air Room Air MDM - Extremity Injury (Lower) Imaging Data Extremity x-ray #1: Radiologist's Impression: PROCEDURE: XR HIP W PEL IF DONE LT 2V INDICATIONS: leg pain after fall TECHNIQUE: AP pelvis with lateral view(s) of the left hip(s). COMPARISON: None. FINDINGS: Bones: No fractures or dislocations. Pelvic ring appears intact. No suspicious bony lesions. Zskv-wi-vmlrggna bilateral degenerative hip joint space narrowing. Degenerative changes are present within the lower lumbar spine. Soft tissues: The visualized bowel gas pattern is normal. No suspicious soft tissue calcifications. 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 Dictated by: Merlene Owens M.D. on 10/10/2023 at 8:55 MDM Narrative Medical decision making narrative: Patient is a 67-year-old male presenting today with back pain radiating down left leg. He was sitting significant labor intensive activity and then had a fall. But caught himself. Pain is musculoskeletal consistent with back pain and sciatica. No evidence of cauda equina. X-ray of hip has been reviewed and negative for fracture but positive for arthritic changes. He does significant abrasion in the left lateral thigh no evidence of cellulitis or infection at this time. He did receive Toradol here in the ED. Discharge Plan Departure Patient Disposition: Home Clinical Impression: Acute back pain with sciatica Instructions: DI for Back Pain With Sciatica Activity Restrictions/Additional Instructions: *You have been diagnosed with back pain with sciatica *What to do: At this time increase activity as tolerated heating pad light stretching encouraged. May try massage [place] bandage is good for about 3-5 days *Continue to take medications as directed Tylenol 1000 mg every 6 hours for dyrm-kl-bcbtwzim pain Motrin 400 mg every 6 hours for mngi-td-ntblpeaw pain Methocarbamol 750 mg every 12 hours for muscle spasm--> this can cause dizziness and sleepiness Lidocaine patch at point of pain for 12 hours only then removed *Follow up with your primary care provider in 2-3 days or call [phone] *Return to ER if you should have increasing leg weakness loss of urine or stool or any new, worsening or concerning symptoms Prescriptions: New methocarbamol 750 mg tablet 750 mg PO Q12H PRN (Reason: muscle spasm) Qty: 14 0RF lidocaine 5 % adhesive patch,medicated 1 patch topical DAILY PRN (Reason: pain) Qty: 30 0RF Rx Instructions: leave on most painful area for up to 12 hrs No Action metformin 1,000 mg tablet extended release 24hr 1,000 mg PO BID ibuprofen 200 mg tablet 400 mg PO Q6H Qty: 60 0RF docusate sodium [Colace] 100 mg capsule 100 mg PO BID Qty: 30 0RF tamsulosin [Flomax] 0.4 mg capsule 0.4 mg PO DAILY atorvastatin [Lipitor] 40 mg tablet 40 mg PO QPM Rx Instructions: orally aspirin [Adult Low Dose Aspirin] 81 mg tablet,delayed release (DR/EC) 81 mg PO DAILY lisinopril 20 mg tablet 20 mg PO DAILY Referrals: Miscellaneous,Doctor, MD [Primary Care Provider] - Stand Alone Forms: Patient Portal/API
[2023-10-10] MEDS: KETOROLAC 30 MG/ML VIAL IM (09:16)
[2023-10-10 09:20] VITALS: BP 103/58; PULSE 61; RESP 16; O2SAT 99
== END 2023-10-10 09:23 | disposition home or self-care (01) ==
PROVIDERS: Emergency Provider Emergency Medicine
DX: M54.42 Lumbago with sciatica, left side (principal); Z79.899 Other long term (current) drug therapy
CPT/HCPCS: 73502; 96372; 99283; J1885

== ENCOUNTER 2023-10-11 09:12 | Emergency (ER) | payer MEDICARE, OTHER, SELFPAY ==
[2020-12-27 03:19] VITALS: BMI 29.4
[2023-10-11 09:23] VITALS: BP 135/100; PULSE 77; RESP 18; TEMP 36.2; O2SAT 100; BMI 22.5
--- NOTE | 2023-10-11 12:36 | DI.RAD.S_ITS ---
PROCEDURE: XR FEMUR LT MIN 2V INDICATIONS: pain after fall TECHNIQUE: AP and lateral views of the femur were acquired. COMPARISON: [facility], CR, XR HIP W PEL IF DONE LT 2V, 10/10/2023, 8:29. FINDINGS: Bones: No fractures or dislocations. No suspicious bony lesions. Degenerative changes of the left hip and knee. Soft tissues: No suspicious soft tissue calcifications or masses. Vascular calcifications are noted. Small suprapatellar joint effusion. IMPRESSION: Left femur without acute fracture or dislocation. Degenerative changes of the left hip and left knee with small suprapatellar joint effusion. If there are persistent symptoms or clinical suspicion for pathology, then repeat radiographs or advanced imaging (CT or MRI) may be considered for further evaluation. Dictated by: Satinder Teran M.D. on 10/11/2023 at 14:08 Approved by: Satinder Teran M.D. on 10/11/2023 at 14:10
[2023-10-11 13:40] VITALS: BP 123/73; PULSE 98; TEMP 36.9; O2SAT 98
--- NOTE | 2023-10-11 13:52 | ED_ITS ---
HPI - Back Pain/Injury General Chief Complaint: Back Pain/Injury Stated Complaint: L leg/hip/back severe pain Time Seen by Provider: 10/11/23 13:22 Source: patient Mode of arrival: Ambulatory Limitations: no limitations History of Present Illness HPI Narrative: 67-year-old male history of diabetes complaint with left-sided back and leg pain. Five days ago was working on a roof getting a mold off the roof and was on the ladder when he slipped about 3 ft up caught himself but has had increasing low back pain radiating down his leg. Patient was seen yesterday had negative hip x-ray, had femur x-ray today. Patient states when he landed he sort of fell onto his right foot, his left leg was caught in the rungs of the ladder and sort of abducted in outwards. He states his back pain is improved from yesterday but he still has quite a bit of discomfort down his leg towards his knee. He states it has not really worse with weight-bearing. It is more painful when he fully extends his back. Feels better when he is flexed or seated. He denies any paresthesias no numbness or tingling. No weakness. Patient denies any saddle anesthesia. No loss of bowel or bladder control. He has been taking Tylenol ibuprofen for pain was given a muscle relaxer she did not find very helpful. Notes the lidocaine patches that were sent to the [facility]. Patient states he is still quite uncomfortable. Related Data Home Medications Medication Instructions Recorded Confirmed aspirin 81 mg tablet,delayed 81 mg PO DAILY 05/13/20 06/22/23 release (Adult Low Dose Aspirin) atorvastatin 40 mg tablet (Lipitor) 40 mg PO QPM 05/13/20 06/22/23 lisinopril 20 mg tablet 20 mg PO DAILY 05/13/20 06/22/23 tamsulosin 0.4 mg capsule (Flomax) 0.4 mg PO DAILY 05/13/20 06/22/23 metformin 1,000 mg tablet,extended 1,000 mg PO BID 12/27/20 06/22/23 release 24hr (osmotic) Previous Rx's Medication Instructions Recorded docusate sodium 100 mg capsule 100 mg PO BID #30 caps 04/12/22 (Colace) ibuprofen 200 mg tablet 400 mg (2 x 200 mg) PO Q6H #60 tabs 04/12/22 lidocaine 5 % topical patch 1 patch topical DAILY PRN pain #30 10/10/23 ea methocarbamol 750 mg tablet 750 mg PO Q12H PRN muscle spasm 10/10/23 #14 tabs lidocaine 5 % topical patch 1 patch topical DAILY PRN pain #30 10/11/23 ea lidocaine 5 % topical patch 1 patch topical DAILY PRN pain #30 10/11/23 ea oxycodone 5 mg tablet 5 mg PO Q6H PRN pain #10 tabs 10/11/23 oxycodone 5 mg tablet 5 mg PO QID PRN pain #10 tabs 10/11/23 Allergies Allergy/AdvReac Type Severity Reaction Status Date / Time No Known Drug Allergies Allergy Verified 10/11/23 09:27 Review of Systems Review of Systems ROS Unobtainable: All systems reviewed & are unremarkable except as noted in HPI and below Patient History Medical History Raynaud disease BPH (benign prostatic hyperplasia) Hyperlipidemia Essential hypertension Diabetes type 2, controlled Surgical History History of fusion of cervical spine History of sinus surgery Family History Father Sepsis Myocardial infarction Mother of unknown cause Social History household members: spouse and children Smoking Status: Current every day smoker alcohol intake: current Smoking Status: Current every day smoker alcohol intake frequency: a few times a month Substance Use Type: does not use Exam Narrative Exam Narrative: GENERAL: Alert and oriented x three, well-appearing male in mild distress HEENT: Head normocephalic, atraumatic, EOMI, pupils reactive, face symmetric, moist mucous membranes NECK: Supple, full range of motion CARDIOVASCULAR: Regular rate and rhythm without murmurs, rubs or gallops. RESPIRATORY: Breath sounds equal bilaterally, no wheezes rales or rhonchi. ABDOMEN: Soft, nontender. Normoactive bowel sounds all 4 quadrants. No guarding or rebound, rigidity, no mass : No CVA tenderness BACK: No cervical, thoracic or lumbar vertebral point tenderness. Patient has normal range of motion. Rectal exam is deferred. Muscle strength is 5/5 in lower extremities, DTRs are 2/4 and lower extremities. Dorsalis pedis and tibialis pulses are 2+ and lower extremities. Sensation is intact in the lower extremities. EXTREMITIES: Normal range of motion, no clubbing or edema. Neurovascularly intact. No known bony tenderness of the left hip, lower extremity knee foot or ankle. Patient states symptoms actually little bit improved when he flexes at the knee and hip with internal external rotation. Has 2+ pulses bilaterally. Normal sensation throughout. NEUROLOGICAL: Cranial nerves II through XII grossly intact. Moving all extremities SKIN: Warm, dry, no petechiae, no rashes or lesions. Initial Vital Signs Initial Vital Signs: Vital Signs Temperature 97.2 F L 10/11/23 09:23 Pulse Rate 77 10/11/23 09:23 Respiratory Rate 18 10/11/23 09:23 Blood Pressure 135/100 H 10/11/23 09:23 Pulse Oximetry 100 10/11/23 09:23 Oxygen Delivery Method Room Air 10/11/23 09:23 Course Orders Ordered: ED Orders 10/11/23 12:36 XR femur LT min 2V Stat Discontinued Medications Ketorolac Tromethamine (Ketorolac 30 Mg/Ml Vial) 30 mg IM NOW ONE Stop: 10/11/23 14:07 Last Admin: 10/11/23 14:19 Dose: 30 mg Documented By: RICHY Vital Signs Vital signs: Vital Signs - 8 hr 10/11/23 13:40 Temperature 98.5 F Pulse Rate 98 H Blood Pressure 123/73 Pulse Oximetry 98 Oxygen Delivery Method Room Air MDM - Back Pain/Injury MDM Narrative Medical decision making narrative: 67-year-old male presents with complaint of persistent back pain left lower extremity pain after fall from ladder several days ago from about 3 ft height. Was seen yesterday had a hip x-ray which was read as negative. Patient is nontender over his back, has no red flag symptoms. Suspect symptoms are more from lumbar spine or sciatica. Patient's exam is overall reassuring. Discussed getting additional imaging but at this time patient defers. He did have a femur x-ray today which prelim review is negative. Discussed with patient we will have him continue with Tylenol ibuprofen he found muscle relaxants not helpful would have him stop that. Add narcotic pain medication as well as recent for lidocaine patches to a different pharmacy. Discussed return precautions. Patient does have a cane at home that he has a available to use but states he has not needed it. All questions answered. Discharge Plan Departure Patient Disposition: Home Clinical Impression: Lumbar radiculopathy Instructions: DI for Lumbar Radiculopathy Activity Restrictions/Additional Instructions: Follow-up for recheck in the next 7-10 days if your symptoms are not continuing to improve. You can take Tylenol up to a 1000 mg every 6 hours and ibuprofen up to 600 mg every 6 hours as needed. Use lidocaine patches as prescribed. Inadequate for pain control you can take oxycodone 1-2 tablets every 6 hours as needed for pain. This medication can make you sleepy do not drive, perform hazardous activities or make any major decisions while taking it. This medication will make you constipated please take a stool softener once to twice daily until stools are soft and regular. Prescription sent to [facility] in [place]. Please return for rapidly worsening symptoms, intractable pain, fevers, new loss of bowel or bladder control, numbness weakness or loss of sensation your lower extremity inability to lift or move it, inability to ambulate or other new or concerning changes. Prescriptions: New oxycodone 5 mg tablet 5 mg PO QID PRN (Reason: pain) Qty: 10 0RF lidocaine 5 % adhesive patch,medicated 1 patch topical DAILY PRN (Reason: pain) Qty: 30 0RF Rx Instructions: leave on most painful area for up to 12 hrs lidocaine 5 % adhesive patch,medicated 1 patch topical DAILY PRN (Reason: pain) Qty: 30 0RF Rx Instructions: leave on most painful area for up to 12 hrs oxycodone 5 mg tablet 5 mg PO Q6H PRN (Reason: pain) Qty: 10 0RF No Action metformin 1,000 mg tablet extended release 24hr 1,000 mg PO BID ibuprofen 200 mg tablet 400 mg PO Q6H Qty: 60 0RF docusate sodium [Colace] 100 mg capsule 100 mg PO BID Qty: 30 0RF tamsulosin [Flomax] 0.4 mg capsule 0.4 mg PO DAILY atorvastatin [Lipitor] 40 mg tablet 40 mg PO QPM Rx Instructions: orally aspirin [Adult Low Dose Aspirin] 81 mg tablet,delayed release (DR/EC) 81 mg PO DAILY lisinopril 20 mg tablet 20 mg PO DAILY methocarbamol 750 mg tablet 750 mg PO Q12H PRN (Reason: muscle spasm) Qty: 14 0RF lidocaine 5 % adhesive patch,medicated 1 patch topical DAILY PRN (Reason: pain) Qty: 30 0RF Rx Instructions: leave on most painful area for up to 12 hrs Referrals: Miscellaneous,Doctor, MD [Primary Care Provider] - Stand Alone Forms: Patient Portal/API
[2023-10-11] MEDS: KETOROLAC 30 MG/ML VIAL IM (14:19)
== END 2023-10-11 14:23 | disposition home or self-care (01) ==
PROVIDERS: Emergency Provider Emergency Medicine
DX: M54.16 Radiculopathy, lumbar region (principal); W18.43XA Slipping, tripping and stumbling without falling due to stepping from one level to another, initial encounter
CPT/HCPCS: 73552; 96372; 99283; J1885

== ENCOUNTER 2023-10-22 15:38 | Emergency (ER) | payer MEDICARE, OTHER, SELFPAY ==
[2020-12-27 03:19] VITALS: BMI 29.4
[2023-10-22 15:42] VITALS: BP 136/63; PULSE 87; RESP 18; TEMP 37; O2SAT 98; BMI 22.5
--- NOTE | 2023-10-22 16:02 | ED.BACK ---
HPI - Back Pain/Injury <Ewa Christianson PA-C - Last Filed: 10/22/23 17:02> General Chief Complaint: Back Pain/Injury Stated Complaint: sciatic nerve pain into left leg Time Seen by Provider: 10/22/23 15:58 Source: patient History of Present Illness HPI Narrative: 67-year-old male with past medical history chronic lower back pain with sciatica presents to the ED with continued left-sided lower back pain. No numbness, tingling, weakness, urinary hesitancy, urinary incontinence, bowel incontinence, saddle paresthesias. No new trauma. Patient describes the pain as shooting nerve pain, describes it as like an electric shock. Patient is currently in the process of having an MRI scheduled which was ordered by his PCP. Patient states he has tried methocarbamol and oxycodone both of which did not seem to help him as much. Related Data Home Medications Medication Instructions Recorded Confirmed aspirin 81 mg tablet,delayed 81 mg PO DAILY 05/13/20 06/22/23 release (Adult Low Dose Aspirin) atorvastatin 40 mg tablet (Lipitor) 40 mg PO QPM 05/13/20 06/22/23 lisinopril 20 mg tablet 20 mg PO DAILY 05/13/20 06/22/23 tamsulosin 0.4 mg capsule (Flomax) 0.4 mg PO DAILY 05/13/20 06/22/23 metformin 1,000 mg tablet,extended 1,000 mg PO BID 12/27/20 06/22/23 release 24hr (osmotic) Previous Rx's Medication Instructions Recorded docusate sodium 100 mg capsule 100 mg PO BID #30 caps 04/12/22 (Colace) ibuprofen 200 mg tablet 400 mg (2 x 200 mg) PO Q6H #60 tabs 04/12/22 lidocaine 5 % topical patch 1 patch topical DAILY PRN pain #30 10/10/23 ea methocarbamol 750 mg tablet 750 mg PO Q12H PRN muscle spasm 10/10/23 #14 tabs lidocaine 5 % topical patch 1 patch topical DAILY PRN pain #30 10/11/23 ea lidocaine 5 % topical patch 1 patch topical DAILY PRN pain #30 10/11/23 ea oxycodone 5 mg tablet 5 mg PO Q6H PRN pain #10 tabs 10/11/23 oxycodone 5 mg tablet 5 mg PO QID PRN pain #10 tabs 10/11/23 gabapentin 300 mg capsule 300 mg PO TID #30 caps 10/22/23 Allergies Allergy/AdvReac Type Severity Reaction Status Date / Time No Known Drug Allergies Allergy Verified 10/22/23 15:45 Review of Systems <Ewa Christianson PA-C - Last Filed: 10/22/23 17:02> Constitutional Constitutional: Denies chills, Denies fatigue, Denies fever(s), Denies frequent falls, Denies lethargy and Denies weakness Eyes Eyes: Denies change in vision, Denies eye discharge, Denies irritation and Denies loss of vision ENT Ears, Nose, Mouth, and Throat: Denies change in voice, Denies dizziness, Denies neck pain, Denies sore throat and Denies throat swelling Cardiovascular Cardiovascular: Denies chest pain, Denies irregular heart rhythm, Denies lightheadedness, Denies palpitations, Denies dyspnea, Denies dyspnea on exertion and Denies orthopnea Respiratory Respiratory: Denies cough, Denies dyspnea, Denies dyspnea on exertion and Denies wheezing Gastrointestinal Gastrointestinal: Denies abdominal pain, Denies change in bowel habits, Denies diarrhea, Denies nausea and Denies vomiting Musculoskeletal Musculoskeletal: Reports back pain, Denies neck pain, Denies numbness and Reports radiating pain into limb Integumentary/Breasts Skin/Breast: Denies pruritus, Denies erythema, Denies rash and Denies wounds Neurologic Neurologic: Denies behavioral changes, Denies confusion, Denies dizziness, Denies frequent falls, Denies loss of vision, Denies numbness and Denies weakness Psychiatric Psychiatric: Denies anxiety, Denies behavioral changes, Denies confusion, Denies depression, Denies homicidal ideation and Denies suicidal ideation Endocrine Endocrine: Denies fatigue, Denies flushing and Denies palpitations Hematologic/Lymphatic Hematologic/Lymphatic: Denies easy bruising Allergic/Immunologic Allergic/Immunologic: Denies urticaria, Denies throat swelling and Denies wheezing Patient History <Ewa Christianson PA-C - Last Filed: 10/22/23 17:02> Medical History Raynaud disease BPH (benign prostatic hyperplasia) Hyperlipidemia Essential hypertension Diabetes type 2, controlled Surgical History History of fusion of cervical spine History of sinus surgery Family History Father Sepsis Myocardial infarction Mother of unknown cause Social History household members: spouse and children Smoking Status: Current every day smoker alcohol intake: current Smoking Status: Current every day smoker tobacco type: cigarettes alcohol intake frequency: a few times a month Substance Use Type: does not use Exam <Ewa Christianson PA-C - Last Filed: 10/22/23 17:02> Narrative Exam Narrative: Const General:?cooperative, healthy appearing and comfortable HENMT Head:?normal to inspection Ears:?hearing grossly normal bilaterally Nose:?external nose normal Face and sinus:?normal facial exam and sinuses nontender Mouth:?oral mucosae normal Throat:?posterior oropharynx normal Eyes General:?appearance normal, both eyes and all related structures Neck Neck:?normal visual inspection and no lymphadenopathy noted Resp Effort & Inspection:?normal respiratory effort Auscultation:?clear to auscultation bilaterally Cardio Rate:?regular rate Rhythm:?regular rhythm Musculoskeletal No midline tenderness to palpation. Full range of motion. Strength and sensation intact. Patient is neurovascularly intact. Neuro General:?patient alert, patient awake and patient oriented x3 Initial Vital Signs Initial Vital Signs: Vital Signs Temperature 98.6 F 10/22/23 15:42 Pulse Rate 87 10/22/23 15:42 Respiratory Rate 18 10/22/23 15:42 Blood Pressure 136/63 10/22/23 15:42 Pulse Oximetry 98 10/22/23 15:42 Oxygen Delivery Method Room Air 10/22/23 15:42 <Avinash Crockett DO - Last Filed: 10/22/23 17:13> Initial Vital Signs Initial Vital Signs: Vital Signs Temperature 98.6 F 10/22/23 15:42 Pulse Rate 87 10/22/23 15:42 Respiratory Rate 18 10/22/23 15:42 Blood Pressure 136/63 10/22/23 15:42 Pulse Oximetry 98 10/22/23 15:42 Oxygen Delivery Method Room Air 10/22/23 15:42 Course <Ewa Christianson PA-C - Last Filed: 10/22/23 17:02> Vital Signs Vital signs: Vital Signs - 8 hr 10/22/23 15:42 Temperature 98.6 F Pulse Rate 87 Respiratory Rate 18 Blood Pressure 136/63 Pulse Oximetry 98 Oxygen Delivery Method Room Air <Avinash Crockett DO - Last Filed: 10/22/23 17:13> Vital Signs Vital signs: Vital Signs - 8 hr 10/22/23 15:42 Temperature 98.6 F Pulse Rate 87 Respiratory Rate 18 Blood Pressure 136/63 Pulse Oximetry 98 Oxygen Delivery Method Room Air MDM - Back Pain/Injury <Ewa Christianson PA-C - Last Filed: 10/22/23 17:02> MDM Narrative Medical decision making narrative: 67-year-old male with past medical history chronic lower back pain with sciatica presents to the ED with continued left-sided lower back pain. Patient's symptoms are consistent with an acute on chronic exacerbation of sciatica. No red flag symptoms including urinary hesitancy, saddle paresthesia, numbness, tingling, weakness. Will prescribe gabapentin. Patient agrees to follow-up PCP as soon as possible. ED return precautions discussed with patient. Patient verbalized understanding. Medical records reviewed: Yes Discharge Plan Departure Patient Disposition: Home Clinical Impression: Sciatica Instructions: DI for Back Pain With Sciatica Activity Restrictions/Additional Instructions: You were evaluated in the ED today for lower back pain. Your pain appears to be an exacerbation of your chronic lower back pain. You are being prescribed gabapentin which is helpful for nerve pain. You may also continue to take Tylenol and ibuprofen. Please follow-up with your PCP as soon as possible. Return to the ED if you have worsening symptoms, numbness, tingling, weakness, urinary difficulties. Prescriptions: New gabapentin 300 mg capsule 300 mg PO TID Qty: 30 0RF No Action metformin 1,000 mg tablet extended release 24hr 1,000 mg PO BID ibuprofen 200 mg tablet 400 mg PO Q6H Qty: 60 0RF docusate sodium [Colace] 100 mg capsule 100 mg PO BID Qty: 30 0RF oxycodone 5 mg tablet 5 mg PO QID PRN (Reason: pain) Qty: 10 0RF lidocaine 5 % adhesive patch,medicated 1 patch topical DAILY PRN (Reason: pain) Qty: 30 0RF Rx Instructions: leave on most painful area for up to 12 hrs lidocaine 5 % adhesive patch,medicated 1 patch topical DAILY PRN (Reason: pain) Qty: 30 0RF Rx Instructions: leave on most painful area for up to 12 hrs oxycodone 5 mg tablet 5 mg PO Q6H PRN (Reason: pain) Qty: 10 0RF tamsulosin [Flomax] 0.4 mg capsule 0.4 mg PO DAILY atorvastatin [Lipitor] 40 mg tablet 40 mg PO QPM Rx Instructions: orally aspirin [Adult Low Dose Aspirin] 81 mg tablet,delayed release (DR/EC) 81 mg PO DAILY lisinopril 20 mg tablet 20 mg PO DAILY methocarbamol 750 mg tablet 750 mg PO Q12H PRN (Reason: muscle spasm) Qty: 14 0RF lidocaine 5 % adhesive patch,medicated 1 patch topical DAILY PRN (Reason: pain) Qty: 30 0RF Rx Instructions: leave on most painful area for up to 12 hrs Referrals: Miscellaneous,Doctor, MD [Primary Care Provider] - Stand Alone Forms: Patient Portal/API ED Sign-out <Avinash Crockett, DO - Last Filed: 10/22/23 17:13> Cosign ED Attending Cosignature Attestation: Dr Crockett Co-Sign Statement: I was available for consultation during this patient's emergency department visit. This chart is signed by myself for administrative purposes only. I did not have direct contact with this patient during this visit. They were seen independently by the APC.
== END 2023-10-22 16:29 | disposition home or self-care (01) ==
PROVIDERS: Emergency Provider Student in an Organized Health Care Education/Training Program
DX: M54.30 Sciatica, unspecified side (principal)
CPT/HCPCS: 99281; 99283

== ENCOUNTER → 2023-10-25 12:12 | Outpatient (CLI) | payer MEDICARE, OTHER, SELFPAY ==
[2020-12-27 03:19] VITALS: BMI 29.4
--- NOTE | 2023-10-25 12:14 | DI.MRI.S_ITS ---
PROCEDURE: MR LUMBAR SPINE WO CON INDICATIONS: Low back pain, unspecified TECHNIQUE: Noncontrast sagittal T1 spin echo and T2 fast echo, sagittal STIR, and T2 fast spin echo through the lumbar spine. In cases with scoliosis, additional coronal T2 fast spin echo may be performed. COMPARISON: None. FINDINGS: Image quality: Excellent. Alignment and Curvature: Grade 1 retrolisthesis L2-3. Minimal retrolisthesis L1-2. Otherwise normal alignment. Bone Marrow: Mild type 1 endplate Modic change along the left aspect of the L3 superior endplate and minimally along the right inferior endplate of L4. There is otherwise normal. No vertebral body fractures. Spinal Cord: Conus medullaris terminates at the L1 level. Visualized cord demonstrates normal signal and size. Paraspinous Soft Tissues: No paravertebral masses. T12-L1: Mild disc desiccation. L1-L2: Mild circumferential disc bulge with broad-based protrusion left foraminal. Mild left neural foraminal narrowing. L2-L3: Moderate circumferential disc bulge. [id number] facet arthropathy and ligamentum flavum hypertrophy causing moderate to severe central canal stenosis. Moderate bilateral foraminal stenosis, left worse than right. L3-L4: Moderate circumferential disc bulge. Moderate facet and ligamentum flavum hypertrophy. Moderate central canal stenosis. Severe right and [id number] left foraminal stenosis. L4-L5: Mild circumferential disc bulge with curvilinear, peripheral T2 signal suggesting small annular tear. Moderate facet arthropathy. Mild central canal stenosis. Moderate to severe right, and minor left foraminal narrowing. L5-S1: No significant disc bulge. No central canal or foraminal stenosis. IMPRESSION: Circumferential disc bulges at multiple levels in the lumbar spine contribute to moderate to severe central canal stenosis, most significant at L2-3. There is moderately severe right-sided neural foraminal narrowing from L2 through L5, most severe at L3-4. Dictated by: So Weathers M.D. on 10/25/2023 at 17:14 Approved by: So Weathers M.D. on 10/25/2023 at 17:29
== END ==
PROVIDERS: Referring Provider Nurse Practitioner Family; Visit Provider Nurse Practitioner Family
DX: M51.36 Other intervertebral disc degeneration, lumbar region (principal); M48.061 Spinal stenosis, lumbar region without neurogenic claudication; M54.50 Low back pain, unspecified
CPT/HCPCS: 72148

== ENCOUNTER 2025-03-23 11:46 | Emergency (ER) | payer MEDICARE, OTHER, SELFPAY ==
[2020-12-27 03:19] VITALS: BMI 29.4
[2025-03-23 12:02] VITALS: PULSE 66; RESP 16; TEMP 36.5; O2SAT 98; BMI 22.9
--- NOTE | 2025-03-23 12:29 | DI.RAD.S_ITS ---
PROCEDURE: XR SHOULDER RT MIN 2V INDICATIONS: shoulder injury TECHNIQUE: 3 views of the shoulder were acquired. COMPARISON: None. FINDINGS: Bones: No fractures or dislocations. No suspicious bony lesions. Visualized ribs appear intact. Soft tissues: No suspicious soft tissue calcifications. IMPRESSION: No acute bony abnormality. Dictated by: Omega Valverde M.D. on 03/23/2025 at 14:18 Approved by: Omega Valverde M.D. on 03/23/2025 at 14:18
--- NOTE | 2025-03-23 16:02 | ED.UPPEXIN ---
HPI - Extremity Injury (Upper) <Ewa Christianson PA-C - Last Filed: 03/23/25 16:13> General Chief Complaint: Extremity Injury, Upper Stated Complaint: Right shoulder pain, Fell 5 days ago Time Seen by Provider: 03/23/25 12:30 Source: patient Mode of arrival: Ambulatory History of Present Illness HPI narrative: 69-year-old male presents to the ED status post a right shoulder injury sustained 5 days prior to arrival. Patient states that he had a mechanical fall off a ladder from above 4 feet, landed on his right hip, also struck his right shoulder. No head strike or loss of consciousness. Patient is not on blood thinners. Patient has had shoulder pain since the injury, and is exacerbated by abduction of the right arm. No numbness, tingling, weakness. Related Data Home Medications ?Medication ?Instructions ?Recorded ?Confirmed aspirin 81 mg tablet,delayed 81 mg PO DAILY 05/13/20 06/22/23 release (Adult Low Dose Aspirin) atorvastatin 40 mg tablet (Lipitor) 40 mg PO QPM 05/13/20 06/22/23 lisinopril 20 mg tablet 20 mg PO DAILY 05/13/20 06/22/23 tamsulosin 0.4 mg capsule (Flomax) 0.4 mg PO DAILY 05/13/20 06/22/23 metformin 1,000 mg tablet,extended 1,000 mg PO BID 12/27/20 06/22/23 release 24hr (osmotic) Previous Rx's ?Medication ?Instructions ?Recorded docusate sodium 100 mg capsule 100 mg PO BID #30 caps 04/12/22 (Colace) ibuprofen 200 mg tablet 400 mg (2 x 200 mg) PO Q6H #60 tabs 04/12/22 lidocaine 5 % topical patch 1 patch topical DAILY PRN pain #30 10/10/23 ea methocarbamol 750 mg tablet 750 mg PO Q12H PRN muscle spasm 10/10/23 #14 tabs lidocaine 5 % topical patch 1 patch topical DAILY PRN pain #30 10/11/23 ea lidocaine 5 % topical patch 1 patch topical DAILY PRN pain #30 10/11/23 ea oxycodone 5 mg tablet 5 mg PO Q6H PRN pain #10 tabs 10/11/23 oxycodone 5 mg tablet 5 mg PO QID PRN pain #10 tabs 10/11/23 gabapentin 300 mg capsule 300 mg PO TID #30 caps 10/22/23 Allergies Allergy/AdvReac Type Severity Reaction Status Date / Time No Known Drug Allergies Allergy Verified 10/22/23 15:45 Review of Systems <Ewa Christianson PA-C - Last Filed: 03/23/25 16:13> Constitutional Constitutional: Denies chills, Denies fatigue, Denies fever(s), Denies frequent falls, Denies lethargy and Denies weakness Eyes Eyes: Denies change in vision, Denies eye discharge, Denies irritation and Denies loss of vision ENT Ears, Nose, Mouth, and Throat: Denies change in voice, Denies dizziness, Denies neck pain, Denies sore throat and Denies throat swelling Cardiovascular Cardiovascular: Denies chest pain, Denies irregular heart rhythm, Denies lightheadedness, Denies palpitations, Denies dyspnea, Denies dyspnea on exertion and Denies orthopnea Respiratory Respiratory: Denies cough, Denies dyspnea, Denies dyspnea on exertion and Denies wheezing Gastrointestinal Gastrointestinal: Denies abdominal pain, Denies change in bowel habits, Denies diarrhea, Denies nausea and Denies vomiting Musculoskeletal Musculoskeletal: Denies neck pain and Denies numbness Comments: Right-sided shoulder pain Integumentary/Breasts Skin/Breast: Denies pruritus, Denies erythema, Denies rash and Denies wounds Neurologic Neurologic: Denies behavioral changes, Denies confusion, Denies dizziness, Denies frequent falls, Denies loss of vision, Denies numbness and Denies weakness Psychiatric Psychiatric: Denies anxiety, Denies behavioral changes, Denies confusion, Denies depression, Denies homicidal ideation and Denies suicidal ideation Endocrine Endocrine: Denies fatigue, Denies flushing and Denies palpitations Hematologic/Lymphatic Hematologic/Lymphatic: Denies easy bruising Allergic/Immunologic Allergic/Immunologic: Denies urticaria, Denies throat swelling and Denies wheezing Patient History <Ewa Christianson PA-C - Last Filed: 03/23/25 16:13> Medical History Raynaud disease BPH (benign prostatic hyperplasia) Hyperlipidemia Essential hypertension Diabetes type 2, controlled Surgical History History of fusion of cervical spine History of sinus surgery Family History Father Sepsis Myocardial infarction Mother of unknown cause Social History household members: spouse and children Smoking Status: Current every day smoker alcohol intake: current Smoking Status: Current every day smoker tobacco type: cigarettes alcohol intake frequency: a few times a month Exam <Ewa Christianson PA-C - Last Filed: 03/23/25 16:13> Narrative Exam Narrative: Const General:?cooperative, healthy appearing and comfortable [facility] Head:?normal to inspection Ears:?hearing grossly normal bilaterally Nose:?external nose normal Face and sinus:?normal facial exam and sinuses nontender Mouth:?oral mucosae normal Throat:?posterior oropharynx normal Eyes General:?appearance normal, both eyes and all related structures Neck Neck:?normal visual inspection and no lymphadenopathy noted Resp Effort & Inspection:?normal respiratory effort Auscultation:?clear to auscultation bilaterally Cardio Rate:?regular rate Rhythm:?regular rhythm Musculoskeletal No tenderness to palpation of the right shoulder. No bruising, deformities. Full range of motion. Strength sensation intact. Neurovascularly intact. Neuro General:?patient alert, patient awake and patient oriented x3 Initial Vital Signs Initial Vital Signs: Vital Signs Temperature 97.7 F 03/23/25 12:02 Pulse Rate 66 03/23/25 12:02 Respiratory Rate 16 03/23/25 12:02 Pulse Oximetry 98 03/23/25 12:02 Oxygen Delivery Method Room Air 03/23/25 12:02 <Stephanie Winter DO - Last Filed: 03/31/25 01:37> Initial Vital Signs Initial Vital Signs: Vital Signs Temperature 97.7 F 03/23/25 12:02 Pulse Rate 66 03/23/25 12:02 Respiratory Rate 16 03/23/25 12:02 Pulse Oximetry 98 03/23/25 12:02 Oxygen Delivery Method Room Air 03/23/25 12:02 Course <Ewa Christianson PA-C - Last Filed: 03/23/25 16:13> Orders Ordered: ED Orders 03/23/25 12:29 XR shoulder RT 2+ views Stat Vital Signs Vital signs: Vital Signs - 8 hr 03/23/25 12:02 Temperature 97.7 F Pulse Rate 66 Respiratory Rate 16 Pulse Oximetry 98 Oxygen Delivery Method Room Air <Stephanie Winter DO - Last Filed: 03/31/25 01:37> Orders Ordered: ED Orders 03/23/25 12:29 XR shoulder RT 2+ views Stat Vital Signs Vital signs: Vital Signs - 8 hr 03/23/25 12:02 Temperature 97.7 F Pulse Rate 66 Respiratory Rate 16 Pulse Oximetry 98 Oxygen Delivery Method Room Air MDM - Extremity Injury (Upper) <Ewa Christianson PA-C - Last Filed: 03/23/25 16:13> MDM Narrative Medical decision making narrative: 69-year-old male presents to the ED status post a right shoulder injury sustained 5 days prior to arrival. Concern for fracture/dislocation versus musculoskeletal sprain/strain versus other. X-ray was obtained which was without acute findings. Recommend supportive care with Tylenol, ibuprofen, heat, lidocaine patches. Recommend follow-up with PCP as soon as possible. ED return precautions discussed with patient. Patient verbalized understanding. Medical records reviewed: Yes Discharge Plan Departure Patient Disposition: Home Clinical Impression: Acute shoulder pain Qualifiers: Laterality: right Qualified Code(s): M25.511 - Pain in right shoulder Instructions: DI for Shoulder Sprain Activity Restrictions/Additional Instructions: You were evaluated in the emergency department today for right-sided shoulder pain. Your x-ray was normal. It appears that you have a musculoskeletal sprain/strain of the right shoulder from the fall. You may continue taking Tylenol, ibuprofen, applying heat and lidocaine patches. Lidocaine patches are available under the trade name Salonpas in the drug store. Please follow-up with your PCP as soon as possible. Return to the ED if you have worsening symptoms, numbness, tingling, weakness. Prescriptions: No Action metformin 1,000 mg tablet extended release 24hr 1,000 mg PO BID ibuprofen 200 mg tablet 400 mg PO Q6H Qty: 60 0RF docusate sodium [Colace] 100 mg capsule 100 mg PO BID Qty: 30 0RF oxycodone 5 mg tablet 5 mg PO QID PRN (Reason: pain) Qty: 10 0RF lidocaine 5 % adhesive patch,medicated 1 patch topical DAILY PRN (Reason: pain) Qty: 30 0RF Rx Instructions: leave on most painful area for up to 12 hrs lidocaine 5 % adhesive patch,medicated 1 patch topical DAILY PRN (Reason: pain) Qty: 30 0RF Rx Instructions: leave on most painful area for up to 12 hrs oxycodone 5 mg tablet 5 mg PO Q6H PRN (Reason: pain) Qty: 10 0RF tamsulosin [Flomax] 0.4 mg capsule 0.4 mg PO DAILY atorvastatin [Lipitor] 40 mg tablet 40 mg PO QPM Rx Instructions: orally aspirin [Adult Low Dose Aspirin] 81 mg tablet,delayed release (DR/EC) 81 mg PO DAILY lisinopril 20 mg tablet 20 mg PO DAILY methocarbamol 750 mg tablet 750 mg PO Q12H PRN (Reason: muscle spasm) Qty: 14 0RF lidocaine 5 % adhesive patch,medicated 1 patch topical DAILY PRN (Reason: pain) Qty: 30 0RF Rx Instructions: leave on most painful area for up to 12 hrs gabapentin 300 mg capsule 300 mg PO TID Qty: 30 0RF Referrals: Provider,PQF [Primary Care Provider, Medical] Stand Alone Forms: Patient Portal/API ED Sign-out <Stephanie Winter DO - Last Filed: 03/31/25 01:37> Cosign ED Attending Madhavature Attestation: I was available for consultation.
[2025-03-23 16:14] VITALS: BP 134/68; PULSE 78; RESP 18; TEMP 36.5; O2SAT 99
== END 2025-03-23 16:14 | disposition home or self-care (01) ==
PROVIDERS: Emergency Provider Student in an Organized Health Care Education/Training Program
DX: M25.511 Pain in right shoulder (principal); W11.XXXA Fall on and from ladder, initial encounter
CPT/HCPCS: 73030; 99281; 99283